=== PATIENT | male | born 1950 | race African-American/Black ===

== ENCOUNTER 2017-03-18 20:37 | Inpatient (IN) ==
[2017-03-18] MEDS ORDERED: TYLENOL ONE (21:00)
[2017-03-18] MEDS ORDERED: TYLENOL PO ONE (21:03)
[2017-03-18] MEDS ORDERED: ZOSYN 3.375 GM in NS 50 ML IV ONE (21:34)
[2017-03-18 21:58] LABS: MANUAL DIFF NEEDED? NO
[2017-03-18 22:04] LABS: HEMOGLOBIN 13.6 g/dL (14.0-18.0); IMM GRAN# 0.02 X1000 (0.0-0.04); IMM GRAN% 0.3 % (0.0-0.5); LYMPH# 0.82 X1000 (1.2-3.4); LYMPH% 10.5 % (20.5-51.1); MCH 28.2 PG (27-31); MCHC 33.2 g/dL (33-37); MCV 84.9 FL (81-99); MONO# 1.22 X1000 (0.11-0.59); MONO% 15.6 % (1.7-9.3); MPV 10.1 FL (7.4-10.4); NEUT% 73.6 % (42.2-75.2); PLT 253 X1000 (130-400); RBC 4.83 XMIL (4.7-6.1)
[2017-03-18 22:34] LABS: AGAP 13; ALBUMIN 4.7 g/dL (3.5-5.0); ALKALINE PHOSPHATASE 99 U/L (32-122); BUN 8 mg/dL (8-22); CALCIUM 9.8 mg/dL (8.8-10.2); CHLORIDE 87 mmol/L (98-107); COSMO 262; GOT 28 U/L (10-34); GPT 19 U/L (10-44); POTASSIUM 4.1 mmol/L (3.5-5.1); SODIUM 131 mmol/L (136-145); TCO2 31 mmol/L (25-35); TOTAL BILIRUBIN 0.21 mg/dL (0.20-1.00); TOTAL PROTEIN 9.2 g/dL (6.3-8.3)
--- NOTE | 2017-03-18 22:49 | Diag Imaging Result Doc PS360 ---
EXAM: CHEST-PORTABLE HISTORY: temp 103 Seizure TECHNIQUE: Portable upright AP COMPARISON: 12/28/2016 FINDINGS: There is basilar atelectasis, otherwise the lungs are well expanded. Heart is not enlarged. The pulmonary vessels are not distended. There are tiny infiltrates in the mid right lung and left base. No pleural effusions identified. IMPRESSION: Tiny infiltrates in the mid right lung and left base. Electronically signed by Bert Knight 03/18/2017 10:47 PM
[2017-03-19 01:34] LABS: URINE CULTURE NEEDED? NO; URINE SOURCE CLEAN CATCH
[2017-03-19 01:36] LABS: BILIRUBIN URINE NEGATIVE (NEGATIVE); BLOOD URINE SMALL (NEGATIVE); COLOR YELLOW; GLUCOSE URINE 70 mg/dL (NEGATIVE); LEUKOCYTES URINE NEGATIVE (NEGATIVE); NITRITE URINE NEGATIVE (NEGATIVE); PH URINE 5.5; PROTEIN URINE 100 mg/dL (NEGATIVE); SP GRAVITY URINE 1.021; TURBIDITY URINE CLEAR (CLEAR); UROBILINOGEN URINE NORMAL (NORMAL)
[2017-03-19 01:37] LABS: URINE MICRO REVIEW NEEDED? YES
[2017-03-19 01:45] LABS: UR EPITHELIAL CELLS <10 /HPF (<10); URINE BACTERIA NEGATIVE /HPF; URINE RBC <10 /HPF (<10); URINE WBC <10 /HPF (<10)
[2017-03-19] MEDS: DILANTIN IV SCH ×2 (03:07→20:19)
[2017-03-19] MEDS: ZOSYN 4.5 GM in NS 100 ML IV SCH ×4 (05:36→23:54)
--- NOTE | 2017-03-19 06:45 | EKG Report ---
Test Performed on : 03/18/2017 8:32:34 PM Test Reason : NO ORDER Blood Pressure : / mmHG Vent. Rate : 136 BPM Atrial Rate : 136 BPM P-R Int : 158 ms QRS Dur : 074 ms QT Int : 258 ms P-R-T Axes : 079 072 024 degrees QTc Int : 388 ms Sinus tachycardia. Right atrial enlargement Left ventricular hypertrophy with repolarization abnormality Abnormal ECG When compared with ECG of 08-FEB-2017 10:39, Inverted T waves have replaced nonspecific T wave abnormality in Lateral leads Unconfirmed Result
--- NOTE | 2017-03-19 08:13 | HISTORY AND PHYSICAL ---
PRIMARY PHYSICIAN: None. CHIEF COMPLAINT: Seizure. HISTORY OF PRESENT ILLNESS: The patient is a 66-year-old gentleman who has been brought from the [facility] for seizure. His past medical history is significant for seizures, multiple visits and admissions. There is history of alcohol abuse as well. He has been in the penitentiary for 1 month, though apparently today he was found by the penitentiary staff on the floor having seizures, so he was brought here. He did have on episode of vomiting there. The history is not very clear and there is no one to give a clear history as book shelver with him do not know the details. He himself is not able to give much information at all. It seems that he was having nausea and vomiting going on since morning and there was questionable witnessed seizure as well after which he was brought here. Here he did not have any seizure and did not have any nausea or vomiting noticed. He was pretty confused in the beginning. After start of antibiotics here, he has improved. He still is not able to give appropriate answers to many questions, but overall looks awake and alert. He says "no" to all questions and does not complain of any pain or any symptoms going on at this point. REVIEW OF SYSTEMS: All review of systems done in detail and he is saying "no" to all the questions except as mentioned in the history and physical. PAST MEDICAL HISTORY: 1. History of seizures with multiple admissions. 2. History of alcohol abuse. PAST SURGICAL HISTORY: No particular surgical history found from his records. He is not able to give any information in that regard. SOCIAL HISTORY: There is history of alcohol drinking but no history of tobacco or drugs. He has come from penitentiary at this point. FAMILY HISTORY: Family history is not obtainable. ALLERGIES: No known drug allergies. HOME MEDICATIONS: He was supposed to be on Dilantin 400 mg at night, not sure whether he was taking that or not. PHYSICAL EXAMINATION: VITAL SIGNS: His vital signs were noticed to be stable but he did have some temperature of 100.1 and heart rate was elevated when he came in at around 110. Blood pressure stable. GENERAL: Lying comfortably in the bed. Looks age appropriate. Looks a little confused but overall pleasant. Not oriented to time, place and person. HEENT: Moist oral mucosa. Pupils equal, round, reactive to light and accommodation. Left eye looks like having cataracts. No ENT inspection findings. RESPIRATORY: Clear to auscultation bilaterally. No wheezes, rales or rhonchi noted. CARDIOVASCULAR: S1, S2. Regular rate and rhythm. GASTROINTESTINAL: Soft, nontender, nondistended. No particular positive findings noted on GI examination. NEUROLOGIC: He is not oriented to time, place and person. He does not seem to be postictal. Looks like at his baseline at this point. He does follow commands. No focal deficits noted on detailed examination. SKIN: Warm, dry and intact. No edema noted. LABORATORY DATA: Lab results are within normal limits. CBC is within normal limits. CMP shows sodium 131, potassium 4.1, chloride 87, BUN 8, creatinine 0.6, glucose 123. Creatine kinase is elevated to 206. LFTs otherwise within normal limits. Total protein 9.2. UA was done which shows some urine protein and urine glucose but negative for urinary tract infection. RADIOLOGY: X-ray was done which does show right-sided infiltrates, mid right lung and left base infiltrates noted. ASSESSMENT AND PLAN: The patient is a pleasant 66-year-old gentleman who has come with nausea, vomiting and possible seizure as well. He does have history of seizures too. We are managing him as follows: 1. Seizure. Not fully sure whether he did have seizure today or not but it seemed like he was confused with some postictal situation going on when he came in her. Apparently he did have some seizure like activity. He was supposed to be on Dilantin 400 at night, not sure whether he was taking it or not. Getting Dilantin level. Starting him on Dilantin 200 mg IV b.i.d. for now while here. Will give Ativan p.r.n. if he does get seizures here. There was concern of alcohol withdrawal and related seizures but, per the history, he has been in the penitentiary for about a month so it should not be related to alcohol withdrawal. We will get an alcohol level as well. 2. Pneumonia: Possible aspiration pneumonia. Started on Abx. 3. History of alcohol abuse. As mentioned above. Most likely it has been about a month while he was in penitentiary so alcohol withdrawal and abuse does not seem to be related to his seizure activity at this point. 4. Deep venous thrombosis prophylaxis. We will give him Lovenox daily. 5. I have put in orders and reconciled medications. All orders will be reviewed and finalized by the morning attending physician and further plan accordingly. cc: Kathy Norman MD MTDD
[2017-03-19] MEDS ORDERED: LOVENOX SUBQ SCH (09:00)
--- NOTE | 2017-03-19 10:26 | HISTORY AND PHYSICAL ---
ADDENDUM REPORT PLAN: 2. Pneumonia. It looks like it could be aspiration pneumonia while maybe he was having a seizure and then got pneumonia. Either way, it could be that he had pneumonia to begin with and then got seizures. In any case, he has been started on Zosyn in the ED, and I would continue that for now while here. The chest x-ray findings were consistent with pneumonia. Further plan according to the overall response to that treatment. cc: Kathy Norman MD
--- NOTE | 2017-03-19 12:59 | Diag Imaging Result Doc PS360 ---
MRI BRAIN W/O CONTRAST - 03/19/2017 INDICATION: seizure COMPARISON: Head CT 02/08/2017 FINDINGS: There is extensive magnetic artifact from a metallic foreign body at the left parietal scalp. There is also extensive patient motion artifact. No definite restricted diffusion. No definite intracranial mass or hemorrhage. There is moderate to advanced periventricular white matter hyperintensity compatible with chronic vascular disease stable from prior exams. The ventricles and sulci are grossly normal. There is sinusitis of the maxillary and frontal sinuses. IMPRESSION: 1. Moderately advanced cerebral white matter chronic microvascular disease. 2. Sinusitis. 3. No acute intracranial process. Electronically signed by Nguyễn Calloway 03/19/2017 12:56 PM
[2017-03-19] MEDS ORDERED: VANCOMYCIN IV PER PHARMACY MISC SCH (13:45)
[2017-03-19] MEDS ORDERED: TYLENOL PO PRN (15:02)
[2017-03-19] MEDS ORDERED: ZOFRAN IV PRN (15:02)
--- NOTE | 2017-03-19 15:23 | PROGRESS NOTE ---
DATE: 03/19/2017 SUBJECTIVE: The patient is awake but does have some confusion. He has no complaints at this time. OBJECTIVE: Vital Signs: Temperature 99.5 degrees, blood pressure 102/81, heart rate 107, respirations 20, O2 saturations 93% on room air. General: This is an elderly male, lying in bed, in no acute distress. Heart: S1, S2 normal. Tachycardic. Lungs: Coarse breath sounds bilaterally. No crackles. No rales. Abdomen: Positive bowel sounds. Soft, nontender, nondistended. Extremities: No edema. No cyanosis. No calf tenderness. Neurologic: The patient is awake and alert. No focal neurologic deficits noted. LABS: UA negative. Blood cultures: One bottle is growing gram-positive cocci. ASSESSMENT AND PLAN: 1. Seizure. The patient does have a history of seizures when he is off of his alcohol. The patient has been seen by Dr. Pierre and we will monitor the patient off of seizure medication. 2. Bacteremia. One bottle of the blood cultures is growing gram-positive cocci. We will start the patient on vancomycin and await the final results of the blood cultures. 3. Pneumonia. Continue on IV Zosyn and vancomycin. 4. Acute sinusitis. Continue with IV antibiotic therapy. 5. Alcohol abuse. The patient has been counseled about alcohol cessation. 6. Deep vein thrombosis prophylaxis. Will start the patient on Lovenox. cc: Sparkle Flowers MD
[2017-03-19] MEDS: DUONEB (A & A) INH SCH ×2 (15:26→21:36)
--- NOTE | 2017-03-19 15:52 | CONSULTATION ---
DATE OF CONSULTATION: 03/19/2017 NEUROLOGY CONSULT NOTE: Mr. Jimenez is 66 years old, well known to me. He had apparent seizure in long-term and was brought to the hospital. There is significant uncertainty regarding previous and recent management. He was in the hospital here in December 2015 and I saw him then. We made decision then to discharge him without medicine to control seizures. There is report in the admission note this time that he may have had a recent prescription for phenytoin 400 mg daily. Mr. Jimenez is not able to provide any valid history regarding medicines. He has a longstanding history of infrequent seizures, generalized seizures on each occasion, never any definite focal feature, never any protracted encephalopathy. I have reviewed the records available regarding several of these previous episodes and, to the best of my ability to review, none of these was unrelated to ethanol. Each episode seems to be clearly a case of ethanol withdrawal seizure. At this time, he was reportedly in long-term. Initially, I thought he had been in long-term for a few weeks which would make ethanol withdrawal seizure less likely, unless he had consumed ethanol after incarceration. However, he told me he was only put in long-term a day and a half or 2 days before the apparent seizure. Workup here includes labs showing nothing remarkable. On exam, he is awake, alert, attentive, cheerful, appropriate. Speech is minimally dysarthric, but easily understood. Language function is intact. Memory is poor. He was not able to provide correct answers regarding orientation. He could not name the President. He could not discuss recent news. He has equal power in the limbs. I did not test his gait. He did well on finger-to- nose testing bilaterally. Tone is equal in the arms. He has full visual field tested very grossly by confrontational finger counting. Facial motility seems a little bit diminished bilaterally, but symmetric. There is no meningismus. IMPRESSION: 1. Longstanding history of apparent isolated seizure episodes, most if not all associated with ethanol withdrawal. In that setting, the best management would be to recommend ethanol abstinence. We might consider prescribing medicine for seizure control, but it seems clear to me that he would likely not follow directions. This is a dilemma and I do not have a definite suggestion. 2. I believe that he is demented. 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 We might consider adding cholinesterase inhibitor as a trial when practical, not urgent. Thanks for asking me to see Mr. Jimenez. cc: MD CHASITY Ayala III
[2017-03-19] MEDS ORDERED: VANCOMYCIN 1.7 GM in NS 250 ML IV ONE (16:00)
[2017-03-19] MEDS: LOVENOX SUBQ SCH (16:17)
[2017-03-20] MEDS: DUONEB (A & A) INH SCH ×4 (03:09→23:45)
[2017-03-20] MEDS: ZOSYN 4.5 GM in NS 100 ML IV SCH ×4 (04:56→23:42)
[2017-03-20] MEDS: VANCOMYCIN 1.2 GM in NS 250 ML IV SCH ×2 (06:23→16:30)
[2017-03-20] MEDS: PRILOSEC PO SCH (06:23)
[2017-03-20 06:59] LABS: AGAP 17; BUN 6 mg/dL (8-22); CHLORIDE 92 mmol/L (98-107); COSMO 272; POTASSIUM 3.9 mmol/L (3.5-5.1); SODIUM 137 mmol/L (136-145); TCO2 28 mmol/L (25-35)
[2017-03-20 07:29] LABS: BASO% 0.3 % (0.0-0.8); EOS# 0.01 X1000 (0.0-0.7); EOS% 0.1 % (0.0-10.0); HEMATOCRIT 37.3 % (42.0-52.0); HEMOGLOBIN 12.3 g/dL (14.0-18.0); IMM GRAN# 0.02 X1000 (0.0-0.04); IMM GRAN% 0.2 % (0.0-0.5); LYMPH# 1.42 X1000 (1.2-3.4); LYMPH% 16.3 % (20.5-51.1); MANUAL DIFF NEEDED? YES; MCH 27.8 PG (27-31); MCV 84.4 FL (81-99); MONO# 1.11 X1000 (0.11-0.59); MONO% 12.8 % (1.7-9.3); MPV 9.7 FL (7.4-10.4); NEUT% 70.3 % (42.2-75.2); PLT 248 X1000 (130-400); RBC 4.42 XMIL (4.7-6.1)
[2017-03-20 07:37] LABS: BANDS 1 % (0-1); BASO 1 % (0-1); LYMPHS 17 % (21-51); MONO 10 % (1-9)
[2017-03-20 07:43] LABS: SED RATE 70 mm/hr (0-15)
--- NOTE | 2017-03-20 08:38 | Diag Imaging Result Doc PS360 ---
EXAM: CT THORAX W/O CONTRAST HISTORY: pneumonia TECHNIQUE: CT chest without contrast. Dose reduction protocol. COMPARISON: None. FINDINGS: No pleural effusions. No cardiomegaly. The ascending aorta is mildly dilated to 4.2 cm. Mild to moderate atherosclerosis. Mildly prominent mediastinal nodes. There are [id number] emphysematous changes. Small patchy infiltrates are found bilaterally. There is a small amount of bronchiectasis within the right middle lobe. Small dense consolidated area posteriorly in the left lower lobe. There is a 4 mm pleural-based nodule within the right middle lobe. Questionable 7 mm nodule or volume averaging inferiorly in the left lower lobe on image 93. IMPRESSION: 1.Small bilateral infiltrates 2.Emphysema 3.Small right middle lobe nodule with a questionable nodule in the left lower lobe 4.Right middle lobe bronchiectasis 5.Mild dilatation of the descending aortic arch Electronically signed by Bert Knight 03/20/2017 8:36 AM
[2017-03-20] MEDS: DILANTIN IV SCH (09:24)
--- NOTE | 2017-03-20 16:06 | PROGRESS NOTE ---
DATE: 03/20/2017 SUBJECTIVE: The patient is resting comfortably in bed. He has no complaints. OBJECTIVE: Vital Signs: Temperature 98.1 degrees, blood pressure 117/63, heart rate 97, respirations 20, O2 saturations 98% on room air. General: This is an elderly male, lying in bed, in no acute distress. Heart: S1, S2 normal. Tachycardic. Lungs: Equal air entry bilaterally. No crackles, no rales. Abdomen: Positive bowel sounds. Soft, nontender, nondistended. Extremities: No edema. No cyanosis. No calf tenderness. Neurologic: The patient is alert and oriented x3. LABORATORIES: White blood cell count 8.7, hemoglobin 12, hematocrit 37, platelets 248,000. Sodium 137, potassium 3.9, BUN 6, creatinine 0.7, glucose 104. ASSESSMENT/PLAN: 1. Bilateral lobe pneumonia. Continue with the current antibiotic regimen. 2. Seizure. The patient has had no further seizure activity. Will continue to monitor the patient off of seizure medication. 3. Right middle lobe nodule and left lobe nodule. The patient will likely require a repeat CT scan upon discharge, after completion of the antibiotic therapy. 4. Alcohol abuse. The patient has been counseled about alcohol cessation. 5. Acute sinusitis. Continue with antibiotic therapy. 6. Bacteremia. So far, 1 bottle of the blood cultures are growing gram-positive cocci. Will await the final culture results. 7. Deep vein thrombosis prophylaxis. Continue on Lovenox. cc: Sparkle Flowers MD
[2017-03-20] MEDS: LOVENOX SUBQ SCH (17:42)
[2017-03-21] MEDS: DUONEB (A & A) INH SCH ×4 (03:49→22:21)
[2017-03-21] MEDS: VANCOMYCIN 1.2 GM in NS 250 ML IV SCH ×2 (04:34→05:27)
[2017-03-21] MEDS: PRILOSEC PO SCH (06:33)
[2017-03-21 06:54] LABS: BASO% 0.2 % (0.0-0.8); EOS# 0.04 X1000 (0.0-0.7); EOS% 0.6 % (0.0-10.0); HEMATOCRIT 37.6 % (42.0-52.0); HEMOGLOBIN 12.5 g/dL (14.0-18.0); IMM GRAN# 0.03 X1000 (0.0-0.04); IMM GRAN% 0.5 % (0.0-0.5); LYMPH% 19.1 % (20.5-51.1); MANUAL DIFF NEEDED? YES; MCHC 33.2 g/dL (33-37); MCV 84.3 FL (81-99); MONO# 1.23 X1000 (0.11-0.59); MONO% 19.6 % (1.7-9.3); PLT 272 X1000 (130-400); RBC 4.46 XMIL (4.7-6.1)
[2017-03-21 07:24] LABS: AGAP 14; BUN 7 mg/dL (8-22); CALCIUM 9.5 mg/dL (8.8-10.2); CHLORIDE 94 mmol/L (98-107); COSMO 270; SODIUM 136 mmol/L (136-145); TCO2 28 mmol/L (25-35)
[2017-03-21 07:29] LABS: LYMPHS 34 % (21-51); MONO 7 % (1-9)
--- NOTE | 2017-03-21 08:21 | Diag Imaging Result Doc PS360 ---
EXAM: CHEST-2 VIEWS HISTORY: pneumonia TECHNIQUE: Two views COMPARISON: 03/18/2017 FINDINGS: The lungs are hyperexpanded. The heart is not enlarged. Minimal atelectasis or small infiltrates in the lower lungs. These are less pronounced on the prior exam. IMPRESSION: Mild interval improvement. Electronically signed by Bert Knight 03/21/2017 8:19 AM
[2017-03-21] MEDS: ZOSYN 4.5 GM in NS 100 ML IV SCH ×2 (09:48→11:22)
--- NOTE | 2017-03-21 14:36 | PROGRESS NOTE ---
DATE: 03/21/2017 SUBJECTIVE: The patient is resting comfortably in bed. He has no complaints at this time. No acute events noted overnight. OBJECTIVE: Vital Signs: Temperature 97.9 degrees, blood pressure 119/77, heart rate 95, respirations 18, O2 saturations 96% on room air. General: This is a chronically ill-appearing, elderly male, lying in bed in no acute distress. Heart: S1, S2 normal. Tachycardic. Lungs: Equal air entry bilaterally. No crackles. No rales. Abdomen: Positive bowel sounds. Soft, nontender, nondistended. Extremities: No edema. No cyanosis. No calf tenderness. Neuro: The patient is awake and alert. No focal neurologic deficits noted. LABORATORY DATA: White blood cell count 6.2, hemoglobin 12, hematocrit 37, platelets 272,000. Sodium 136, potassium 4, chloride 94, CO2 of 28. BUN 7, creatinine 0.8, glucose 101. ASSESSMENT AND PLAN: 1. Pneumonia. Continue with antibiotic therapy. 2. Bacteremia. The patient had 1 bottle of the blood cultures grow out Moraxella. We will consult Infectious Disease and await further recommendations. 3. Seizure. The patient is off of seizure medication at this time and has been assessed by Dr. Pierre. We will continue to monitor the patient off of antiepileptic medication. 4. Alcohol abuse. The patient has been counseled about alcohol cessation. 5. Acute sinusitis. Continue with antibiotic therapy. 6. Right and left lobe nodules. We will set the patient to follow up with a clinical biostatistician as outpatient for repeat CT once his pneumonia has resolved. The patient has been advised to quit smoking. 7. Deep vein thrombosis prophylaxis. Continue on Lovenox. cc: Sparkle Flowers MD
[2017-03-21] MEDS: ROCEPHIN 2 GM in NS 50 ML IV SCH (16:34)
[2017-03-21] MEDS: LOVENOX SUBQ SCH (16:34)
[2017-03-21] MEDS: FLONASE NAS SCH (20:30)
[2017-03-21] MEDS: NICODERM PATCH TD SCH (20:32)
--- NOTE | 2017-03-21 21:12 | CONSULTATION ---
DATE OF CONSULTATION: 03/21/2017 Based on the data collected by my nurse practitioner, Mee Emerson, and my physical examination, I have come up with a plan of treatment which is being dictated right now by my nurse practitioner. cc: Carlin Gordillo MD
--- NOTE | 2017-03-21 21:18 | CONSULTATION ---
DATE OF CONSULTATION: 03/21/2017 CONCLUSION: Mr. Jimenez had a seizure in the half-way and has been admitted for bilateral infiltrates, possible aspiration pneumonia and sinusitis as seen in the MRI. RECOMMENDATION: Dr. Gordillo has discontinued vancomycin and Zosyn due to this blood culture results of Moraxella noted to blood culture. Susceptibilities are pending. At this point, we will start Rocephin 2 g IV. He does have a sinusitis noted on his brain MRI as well as bilateral small infiltrates on his chest CT. We will also order Flonase 2 squirts to each nostril twice a day. DISCUSSION: Mr. Jimenez is somewhat lethargic and a poor historian. He has been admitted to the hospital after being in half-way with a seizure and falls asleep at times during his review of history. LABORATORIES AND X-RAY: His white count is 6.27, hemoglobin 12.5, platelet count is 272,000. Creatinine is 0.6, GFR is greater than 60, CRP is 312. CT scan with small bilateral infiltrates yesterday and sinus as mentioned below on the brain MRI. Blood culture show Moraxella growing. PAST MEDICAL HISTORY/REVIEW OF SYSTEMS: Eyes and ears: The patient denies any vision or hearing problems. Neck: Denies any stiffness or swelling. Respiratory: He denies any cough or shortness of breath. Cardiovascular: He states he has no chest pain or palpitations. GI: He denies any nausea, vomiting, diarrhea, or constipation. : He denies any dysuria or flank pain. Endocrine: The patient states he does not have diabetes or any thyroid problems. Neurologic: He says he has had seizures in the past, but does not take any seizure medication. Denies any tremors or weakness. INFECTIOUS DISEASE HISTORY: Mr. Jimenez says he has had pneumonia in the past which he states was a while back, but he has never had a UTI. PREVIOUS HOSPITALIZATIONS AND OPERATIONS: He has been hospitalized numerous times for altered mental status, ETOH withdrawal and seizures. He denies any history of surgery and no obvious incisions noted. MEDICAL HISTORY: He has had a history of seizures with multiple admissions and alcohol abuse. He is also a cigarette smoker of a pack a day. He has had history of hypertension. He has dislocated his right femoral head with a closed reduction in 2013 and has had multiple hand fractures and dislocations to the left hand in the past. PAST FAMILY HISTORY: The patient denies any family history of cancer, diabetes or heart disease. ALLERGIES: Patient denies any allergies to food or medicine. HOME MEDICATIONS: The patient states he does not take medications at home. He has been previously prescribed Dilantin to take at bedtime for seizure prevention. PHYSICAL EXAMINATION: Vital Signs: Temperature 97.9 degrees, heart rate 95, respiratory rate 18, blood pressure 119/77. He is 96% O2 saturation on room air. Generally: Mr. Jimenez is sitting up in bed, drowsy, looks age appropriate, he is slightly confused, and thinks he is in half-way. Reoriented, but he does know who he is. He seems very forgetful and is a poor historian. HEENT: Oral mucosa is moist. The mouth shows poor dentition with very few teeth. Pupils: Equal, round, and reactive to light. He is atraumatic and normocephalic. Respiratory: His respirations are even and nonlabored. His lungs sounds are auscultated, are clear bilaterally. He is diminished with shallow breath breathing. No wheezes or rhonchi noted. Cardiovascular: S1, S2 heard. He is in a regular rate and rhythm. Extremities: No edema to lower extremities. GI: Is soft, nontender, nondistended. Bowel sounds are noted to all 4 quadrants. Skin: Warm, dry, and intact. He has IV to his right forearm. The site looks clean, dry and intact. The previous plans have been discussed with and recommended by Dr. Carlin Gordillo. Dictated by JUDITH Morfin for Carlin Gordillo MD cc: JUDITH Morfin MD [facility]
[2017-03-22] MEDS: DUONEB (A & A) INH SCH ×4 (03:12→21:39)
[2017-03-22] MEDS: PRILOSEC PO SCH (06:32)
[2017-03-22 06:47] LABS: HEMATOCRIT 37.8 % (42.0-52.0); HEMOGLOBIN 12.6 g/dL (14.0-18.0); MCH 28.5 PG (27-31); MCHC 33.3 g/dL (33-37); MCV 85.5 FL (81-99); MPV 9.7 FL (7.4-10.4); RBC 4.42 XMIL (4.7-6.1)
[2017-03-22 07:16] LABS: AGAP 18; BUN 6 mg/dL (8-22); CHLORIDE 90 mmol/L (98-107); COSMO 264; POTASSIUM 4.4 mmol/L (3.5-5.1); SODIUM 133 mmol/L (136-145); TCO2 25 mmol/L (25-35)
[2017-03-22] MEDS: FLONASE NAS SCH ×2 (09:41→23:08)
[2017-03-22] MEDS: ZOSYN 4.5 GM in NS 100 ML IV SCH (10:30)
[2017-03-22] MEDS: ROCEPHIN 2 GM in NS 50 ML IV SCH (17:06)
--- NOTE | 2017-03-22 17:14 | PROGRESS NOTE ---
DATE: 03/22/2017 SUBJECTIVE: The patient is resting comfortably in bed. He has no complaints. OBJECTIVE: Vital Signs: Temperature 98.3 degrees, blood pressure 127/75, heart rate 91, respirations 26, O2 saturations 93% on room air. General: This is an elderly male, lying in bed, in no acute distress. Heart: S1, S2 normal. Tachycardic. Lungs: Equal air entry bilaterally. No crackles. No rales. Abdomen: Positive bowel sounds. Soft, nontender, nondistended. Extremities: No edema. No cyanosis. No calf tenderness. Neurologic: The patient is alert and oriented x3. LABS: White blood cell count 5.1, hemoglobin 12, hematocrit 37, platelets 306,000. Sodium 133, BUN 6, creatinine 0.5, glucose 97. ASSESSMENT AND PLAN: 1. Pneumonia. Continue on IV Rocephin as directed by Dr. Carlin Gordillo. 2. Bacteremia secondary to Moraxella. Continue on Rocephin. 3. Alcohol abuse. Aware. 4. Acute sinusitis. Continue with IV antibiotic therapy. 5. Right and left lobe nodules. The patient will follow up for an outpatient CT upon completion of his antibiotic therapy. 6. Seizure. The patient has had not has not had any further seizure activity. We will continue to monitor closely. 7. Deep vein thrombosis prophylaxis. Continue on Lovenox. cc: Sparkle Flowers MD
--- NOTE | 2017-03-22 20:22 | PROGRESS NOTE ---
DATE: 03/22/2017 PRESENT ILLNESS: The patient has a Moraxella bacteremia, pneumonia, and sinusitis. MEDICATIONS: The patient is on Rocephin 2 g IV daily. PHYSICAL EXAMINATION: Vital Signs: Temperature is 98.3 degrees, pulse 98, respirations 16, blood pressure 127/75. General: This is an ill-appearing and somewhat malnourished middle-aged male. He is in no acute distress. Lungs: Clear to auscultation. HEENT: No drainage noted from the nose or ears. Sinuses are not tender. Cardiovascular: Heart rate is regular. Abdomen: Soft and nontender. Lungs: Clear to auscultation. LAB AND X-RAY: There is no new radiographic study. CBC today shows a white count of 5130, hemoglobin 12.6, and platelet count 306,000. Creatinine is 0.5. GFR is greater than 60. The patient's blood culture grew Moraxella and Streptococcus. ASSESSMENT AND PLAN: The patient has Moraxella bacteremia, pneumonia, and sinusitis. My plan is to continue Rocephin. I have requested on the 25 of March to have a CBC, BMP, chest x-ray and CT scan of the sinuses. Hopefully, if everything looks better hopefully we will be able to send the patient home on an oral antibiotic possibly Levaquin. Since the patient does have a history of seizures, I probably will not use Levaquin. Most likely I would use something like Ceftin or another possibility would be Augmentin. COMORBIDITIES: Alcohol abuse, cigarette smoking. cc: Carlin Gordillo MD
[2017-03-22] MEDS: NICODERM PATCH TD SCH (23:08)
[2017-03-22] MEDS: LOVENOX SUBQ SCH (23:08)
[2017-03-23] MEDS: DUONEB (A & A) INH SCH ×4 (03:18→22:03)
[2017-03-23] MEDS: PRILOSEC PO SCH (06:31)
[2017-03-23] MEDS: NICODERM PATCH TD SCH (11:12)
[2017-03-23] MEDS: FLONASE NAS SCH ×2 (11:13→21:42)
[2017-03-23] MEDS: ROCEPHIN 2 GM in NS 50 ML IV SCH (16:52)
[2017-03-23] MEDS: LOVENOX SUBQ SCH (21:42)
[2017-03-24] MEDS: DUONEB (A & A) INH SCH ×4 (03:12→21:50)
[2017-03-24] MEDS: PRILOSEC PO SCH (06:04)
[2017-03-24] MEDS: FLONASE NAS SCH ×2 (09:33→21:10)
[2017-03-24] MEDS: NICODERM PATCH TD SCH (09:33)
--- NOTE | 2017-03-24 15:23 | PROGRESS NOTE ---
DATE: 03/24/2017 SUBJECTIVE: The patient is resting comfortably in bed. He states that he wants to go home. OBJECTIVE: Vital Signs: Temperature 98, blood pressure 127/77, heart rate 100, respirations 21, O2 saturation 96% on room air. General: This is a chronically ill-appearing elderly male, lying in bed. Head: Normocephalic, atraumatic. Heart: S1, S2. Normal. Tachycardic. Lungs: Equal air entry bilaterally. No crackles, no rales. Abdomen: Positive bowel sounds. Soft, nontender, nondistended. Extremities: No edema. No cyanosis. No calf tenderness. Neurologic: The patient is awake and alert. LABORATORY STUDIES: White blood cell count 5.1, hemoglobin 12, hematocrit 37, platelets 306,000. Sodium 133, potassium 4.4, chloride 90, CO2 25, BUN 6, creatinine 0.5, glucose 97. ASSESSMENT AND PLAN: 1. Pneumonia. Continue on IV Rocephin. 2. Bacteremia secondary to Moraxella. Continue on Rocephin. 3. Acute sinusitis. Continue with antibiotic therapy. 4. Alcohol abuse. Aware. 5. Seizure. No further seizure activity noted. 6. Lung nodules. The patient will follow up with a retort pre cooker upon discharge for a repeat CT. 7. Deep vein thrombosis prophylaxis. Continue on Lovenox. cc: Sparkle Flowers MD
[2017-03-24] MEDS: ROCEPHIN 2 GM in NS 50 ML IV SCH (15:35)
[2017-03-24] MEDS ORDERED: CEREBYX IV ONE (17:09)
[2017-03-24] MEDS ORDERED: ATIVAN IV PRN (17:10)
[2017-03-24 17:11] LABS: ALLEN TEST YES; BE -21.3 mmoll (-3.0-3.0); BLOOD TYPE ARTERIAL; DRAW SITE R RADIAL; METHB 1.2 % (0.0-1.5); O2(CT) 18.4 mL/dL (15.0-23.0); PCO2(98.6) 40 mmHg (35-45); PO2(98.6) 101 mmHg (60-100); SAMPLE BLOOD; SAO2 96.7 % (95.0-100.0); THB 13.8 g/dL (11.5-17.4)
[2017-03-24 17:13] LABS: MODALITY ROOM AIR; pH(98.6) 6.99 (7.35-7.45)
[2017-03-24 17:14] LABS: LACTATE > 20.00 mmoll (0.44-2.22)
[2017-03-24 17:30] LABS: MANUAL DIFF NEEDED? NO
[2017-03-24 17:36] LABS: BASO% 0.4 % (0.0-0.8); EOS# 0.15 X1000 (0.0-0.7); EOS% 1.5 % (0.0-10.0); HEMATOCRIT 42.2 % (42.0-52.0); HEMOGLOBIN 13.4 g/dL (14.0-18.0); IMM GRAN# 0.15 X1000 (0.0-0.04); IMM GRAN% 1.5 % (0.0-0.5); LYMPH# 3.45 X1000 (1.2-3.4); MCH 27.9 PG (27-31); MCHC 31.8 g/dL (33-37); MCV 87.9 FL (81-99); MONO# 1.73 X1000 (0.11-0.59); MONO% 17.5 % (1.7-9.3); MPV 9.4 FL (7.4-10.4); NEUT% 44.1 % (42.2-75.2); PLT 433 X1000 (130-400)
[2017-03-24 17:54] LABS: AGAP 31; ALBUMIN 4.3 g/dL (3.5-5.0); ALKALINE PHOSPHATASE 81 U/L (32-122); BUN 15 mg/dL (8-22); CALCIUM 10.2 mg/dL (8.8-10.2); CHLORIDE 91 mmol/L (98-107); COSMO 277; GOT 19 U/L (10-34); GPT 21 U/L (10-44); POTASSIUM 4.6 mmol/L (3.5-5.1); SODIUM 136 mmol/L (136-145); TCO2 14 mmol/L (25-35); TOTAL PROTEIN 8.1 g/dL (6.3-8.3)
--- NOTE | 2017-03-24 17:59 | Diag Imaging Result Doc PS360 ---
CHEST-PORTABLE - 03/24/2017 INDICATION: aspiration TECHNIQUE: COMPARISON: 03/21/2017 FINDINGS: There are stable trace effusions and atelectasis in the lung bases. Stable COPD changes. No definite infiltrates at this time. Heart size is top normal. IMPRESSION: Improvement from prior. Electronically signed by Nguyễn Calloway 03/24/2017 5:57 PM
[2017-03-24] MEDS ORDERED: CEREBYX 1,000 MG in NS 50 ML IV ONE (18:00)
[2017-03-24] MEDS: KEPPRA 500 MG in NS 100 ML IV SCH (18:44)
[2017-03-24] MEDS ORDERED: ATIVAN IV ONE (19:29)
[2017-03-24] MEDS ORDERED: LACTULOSE PO ONE (19:34)
[2017-03-24 19:38] LABS: INR 1.09; PROTIME 11.5 Seconds (9.2-11.7)
[2017-03-24 21:09] LABS: ALLEN TEST YES; BE 4.9 mmoll (-3.0-3.0); BLOOD TYPE ARTERIAL; DRAW SITE R RADIAL; METHB 1.6 % (0.0-1.5); MODALITY ROOM AIR; PCO2(98.6) 41 mmHg (35-45); PO2(98.6) 63 mmHg (60-100); SAMPLE BLOOD; SAO2 94.7 % (95.0-100.0); THB 13.2 g/dL (11.5-17.4); pH(98.6) 7.46 (7.35-7.45)
[2017-03-24] MEDS: LOVENOX SUBQ SCH (21:14)
[2017-03-24 22:19] LABS: URINE CULTURE NEEDED? NO; URINE SOURCE CATH
--- NOTE | 2017-03-24 22:20 | CONSULTATION ---
DATE OF CONSULTATION: 03/24/2017 PRIMARY HOSPITALIST: Sparkle Flowers MD. INDICATION FOR CONSULTATION: 1. The patient found down. 2. Known history of seizure disorder. HISTORY OF PRESENT ILLNESS: The patient is a 66-year-old male, who was admitted on 03/19/2017 from the detention for evaluation of seizures. Today, as I was walking down the [place], he was found face down, half in the bed and half slumped on the floor, unresponsive. We were able to place the patient on the bed, and perform a jaw thrust. He had spontaneous breathing and respirations. However, his mental status was altered. He was incontinent of urine, suggesting that he had a seizure. His airway was suctioned, and we were able to find a spontaneous blood pressure of 155/69. His pulse at that time was 127, with spontaneous respirations of 24-26. His oxygen saturation was 98% on room air. In light of these findings and his unresponsive state, critical assist call was made, and the patient was transported to the ICU. PAST MEDICAL HISTORY: 1. Seizures. 2. Alcohol abuse. PAST SURGICAL HISTORY: None according to the chart. SOCIAL HISTORY: Remarkable for a history of ETOH, but no tobacco or recreational drug use. FAMILY HISTORY: Noncontributory. MEDICATION ALLERGIES: None. HOME MEDICATIONS: The patient was supposed to be on Dilantin. It is unclear if he was actively taking it at home. PHYSICAL EXAMINATION: Vital Signs: His blood pressure is 155/69, pulse 127, respiration 24, temperature is 98.1. HEENT: Remarkable for reactive pupils, but unresponsive state. He grimaces with noxious stimuli. His breath sounds are coarse, but there was no rhonchi or wheezing. Cardiovascular: Reveals a tachycardia, with a regular rhythm. Abdomen: Soft and nontender, with normoactive bowel sounds. He is incontinent of urine. Extremities: There is no evidence of edema. OBJECTIVE DATA: CBC of 13.4, with hematocrit of 42.2, and a white count of 9.86. He has 433,000 platelets. His blood gas reveals a pH of 6.99, with a pCO2 of 40 and a PO2 of 101. His arterial lactate is greater than 20. On serum chemistries, sodium is 136, potassium 4.6, chloride 91, CO2 14, BUN 15, creatinine 0.8, with a glucose of 170. His calcium is 10.2, with a total bilirubin of 0.10, AST 19, ALT 21, alkaline phosphatase 81, total protein 8.1 and albumin 4.3. His ammonia level is 190, and his CK is 96. IMPRESSION: 1. Seizure disorder. 2. Alcoholic encephalopathy. 3. Altered mental status. RECOMMENDATION: 1. The patient is being transported to the ICU, bed 11, for further management. 2. He should receive oral lactulose once his mental status has improved, in order to the correct the hepatic encephalopathy. 3. It is reasonable to place a nasogastric tube to allow for administration of the lactulose and other medications. 4. A Dilantin level was drawn and is pending. 5. Please repeat his blood gas in the next 8-10 hours to ensure that his lactate level is improving post seizure. 6. Please obtain a CRP so that we have an interval reassessment. It should be noted that his CRP on March 20 was [id number]. 7. Please obtain a PT and INR to assess his liver function status. 8. Additional recommendations to follow based on his clinical course. cc: MD Sparkle Zuñiga MD
[2017-03-24 22:23] LABS: BILIRUBIN URINE NEGATIVE (NEGATIVE); BLOOD URINE LARGE (NEGATIVE); COLOR YELLOW; GLUCOSE URINE NEGATIVE (NEGATIVE); LEUKOCYTES URINE NEGATIVE (NEGATIVE); NITRITE URINE NEGATIVE (NEGATIVE); PROTEIN URINE 30 mg/dL (NEGATIVE); TURBIDITY URINE HAZY (CLEAR); UROBILINOGEN URINE NORMAL (NORMAL)
[2017-03-24 22:24] LABS: URINE MICRO REVIEW NEEDED? YES
[2017-03-24 22:25] LABS: UR EPITHELIAL CELLS >10 /HPF (<10); URINE BACTERIA NEGATIVE /HPF; URINE RBC <10 /HPF (<10); URINE WBC <10 /HPF (<10)
[2017-03-24 22:30] LABS: URINE CASTS GRANULAR PRESENT
[2017-03-25] MEDS: ATIVAN IV PRN ×3 (00:49→20:25)
--- NOTE | 2017-03-25 03:51 | PROGRESS NOTE ---
DATE: 03/23/2017 SUBJECTIVE: The patient is resting comfortably in bed. He has no complaints. OBJECTIVE: Vital Signs: Temperature 97.3 degrees, blood pressure 121/79, heart rate 118, respirations 20, O2 saturations 97% on room air. General: This is an elderly male lying in bed in no acute distress. Heart: S1, S2. Normal. Tachycardic. Lungs: Clear to auscultation bilaterally. Abdomen: Positive bowel sounds. Soft, nontender, nondistended. Extremities: No edema. No cyanosis. No calf tenderness. Neuro: The patient is alert and oriented x3. LABS: Sodium 133, potassium 4.4, chloride 90, CO2 25, BUN 6, creatinine 0.5, glucose 97. ASSESSMENT AND PLAN: 1. Pneumonia. Continue on Rocephin. 2. Bacteremia secondary to Moraxella. Continue on IV antibiotic therapy. 3. Acute sinusitis. Continue with IV antibiotic therapy. 4. Alcohol abuse. Aware. 5. Right and left lung nodules. The patient will follow up with Pulmonary as outpatient for repeat CT scan. 6. Seizure disorder. The patient is not on any seizure medication and he has not had any further seizures. 7. Deep vein thrombosis prophylaxis. Continue on Lovenox. 8. Continue with physical therapy. cc: Sparkle Flowers MD
[2017-03-25] MEDS: DUONEB (A & A) INH SCH ×4 (04:55→22:42)
[2017-03-25 04:58] LABS: ALLEN TEST YES; BE 2.9 mmoll (-3.0-3.0); BLOOD TYPE ARTERIAL; DRAW SITE R RADIAL; METHB 1.7 % (0.0-1.5); O2(CT) 18.4 mL/dL (15.0-23.0); PCO2(98.6) 34 mmHg (35-45); PO2(98.6) 89 mmHg (60-100); SAMPLE BLOOD; SAO2 98.1 % (95.0-100.0); THB 13.7 g/dL (11.5-17.4); pH(98.6) 7.49 (7.35-7.45)
[2017-03-25 05:00] LABS: MODALITY ROOM AIR
[2017-03-25 05:14] LABS: MONO# 1.59 X1000 (0.11-0.59)
[2017-03-25 05:15] LABS: BASO% 0.6 % (0.0-0.8); EOS# 0.09 X1000 (0.0-0.7); EOS% 1.3 % (0.0-10.0); HEMATOCRIT 37.8 % (42.0-52.0); HEMOGLOBIN 12.7 g/dL (14.0-18.0); IMM GRAN# 0.06 X1000 (0.0-0.04); IMM GRAN% 0.9 % (0.0-0.5); LYMPH# 1.61 X1000 (1.2-3.4); LYMPH% 23.4 % (20.5-51.1); MANUAL DIFF NEEDED? YES; MCH 28.2 PG (27-31); MCHC 33.6 g/dL (33-37); MONO% 23.1 % (1.7-9.3); MPV 8.8 FL (7.4-10.4); NEUT% 50.7 % (42.2-75.2); PLT 424 X1000 (130-400)
[2017-03-25 05:27] LABS: ALBUMIN 3.9 g/dL (3.5-5.0); ALKALINE PHOSPHATASE 69 U/L (32-122); DIRECT BILIRUBIN < 0.20 mg/dL (0.00-0.20); GOT 19 U/L (10-34); GPT 17 U/L (10-44); TOTAL BILIRUBIN 0.17 mg/dL (0.20-1.00); TOTAL PROTEIN 7.9 g/dL (6.3-8.3)
[2017-03-25] MEDS: KEPPRA 500 MG in NS 100 ML IV SCH ×2 (05:40→19:18)
[2017-03-25 05:41] LABS: AGAP 14; BUN 11 mg/dL (8-22); CALCIUM 9.3 mg/dL (8.8-10.2); CHLORIDE 100 mmol/L (98-107); COSMO 275; POTASSIUM 4.2 mmol/L (3.5-5.1); SODIUM 138 mmol/L (136-145); TCO2 24 mmol/L (25-35)
[2017-03-25] MEDS: PRILOSEC PO SCH (06:12)
[2017-03-25 07:45] LABS: BANDS 1 % (0-1); LYMPHS 23 % (21-51); MONO 18 % (1-9)
--- NOTE | 2017-03-25 08:19 | Diag Imaging Result Doc PS360 ---
EXAM: CT PARANASAL SINUSES HISTORY: sinusitis TECHNIQUE: CT sinuses without contrast. Dose reduction protocol. COMPARISON: 02/08/2017 FINDINGS: There is minimal mucosal thickening within each maxillary sinus and ethmoid sinus. There is moderate mucosal thickening in the right frontal sinus. No sinus opacification. No air-fluid levels. No bone destruction. No bony expansion. IMPRESSION: Mild sinusitis. Electronically signed by Bert Knight 03/25/2017 8:16 AM
--- NOTE | 2017-03-25 08:23 | Diag Imaging Result Doc PS360 ---
EXAM: CHEST-1 VIEW INDICATION: pneumonia TECHNIQUE: One view COMPARISON: 03/24/2017 FINDINGS: The patient is rotated slightly toward the right. Trace bibasilar atelectasis is unchanged. No new consolidation is identified. Cardiac silhouette is stable. IMPRESSION: Stable chest. Electronically signed by Binh Jackson 03/25/2017 8:21 AM
[2017-03-25] MEDS: LACTULOSE PO SCH ×3 (08:27→19:17)
[2017-03-25] MEDS: NICODERM PATCH TD SCH (08:27)
[2017-03-25] MEDS: FLONASE NAS SCH ×2 (08:28→20:19)
[2017-03-25] MEDS ORDERED: LACTULOSE NG SCH (09:00)
[2017-03-25 10:40] LABS: HEMOGLOBIN A1C 5.8 % (4.8-6.0)
--- NOTE | 2017-03-25 15:55 | PROGRESS NOTE ---
DATE: 03/25/2017 SUBJECTIVE: The patient is resting comfortably in bed. The patient did have some agitation last night. No other acute events noted. OBJECTIVE: Vital Signs: Temperature 97.9 degrees, blood pressure 112/59, heart rate 98, respirations 24, O2 saturations 96% on room air. General: This is a chronically ill-appearing elderly male lying in bed in no acute distress. Heart: S1, S2. Normal. Lungs : Equal air entry bilaterally. No crackles. No rales. Abdomen: Positive bowel sounds. Soft, nontender, nondistended. Extremities: No edema. No cyanosis. No calf tenderness. Neurologic: The patient is lethargic but will awaken when his name is called. LAB: White blood cell count 6.8, hemoglobin 12, hematocrit 37, platelets 424, 000, sodium 138, potassium 4.2, chloride 100, CO2 24, BUN 11, creatinine 0.6, glucose 96. ASSESSMENT AND PLAN: 1. Seizure disorder. The patient is now on Keppra. No further seizures noted. 2. Pneumonia. Continue on IV antibiotic therapy. 3. Acute sinusitis. Continue with IV antibiotic therapy. 4. Bacteremia secondary to Moraxella. Continue on Rocephin. 5. Alcohol abuse. Aware. 6. Lung nodules. The patient will require outpatient followup. 7. Deep vein thrombosis prophylaxis. Continue on Lovenox. cc: Sparkle Flowers MD MTDD
--- NOTE | 2017-03-25 17:26 | PROGRESS NOTE ---
DATE: 03/25/2017 SUBJECTIVE: The patient states that he feels fine. He has been noted to be quite irritable today. He denies nausea with vomiting, abdominal pain, and diarrhea. He had no bowel movements overnight. The patient states that he would like to have a couple coffee. OBJECTIVE: Vital signs: On examination, his blood pressure is 95/69, pulse of 103, respiration 24, temperature of 98.1 degrees. Pulmonary: Lungs are clear to auscultation with normal expiratory effort. Cardiovascular: Reveals regular rate and rhythm with no murmurs, gallops, or rubs. Abdominal: Reveals normoactive bowel sounds. The abdomen is soft and nontender with no rebound or guarding. OBJECTIVE DATA: Reveals a hemoglobin of 12.7 with hematocrit of 37.8 and a white count of 6.87. He has 424,000 platelets. His blood gas reveals a pH of 7.49, pCO2 of 34, and a PO2 of 89 on room air. Sodium is 138, potassium 4.2, chloride 100, CO2 24, BUN 11, creatinine 0.6 with a glucose of 96. His hemoglobin A1c is 5.8. Calcium is 9.3, total bilirubin 0.17, AST 19, ALT 17, alkaline phosphatase 69, total protein 7.9 and albumin 3.9. On 03/24/2017, his PT was 11.5 with an INR of 1.09 and his CRP was 36.50. RECOMMENDATION: 1. The patient appears to have had a seizure yesterday when he was found unresponsive. He is returned back to his baseline although he is somewhat agitated. Therefore, I recommend continuing conservative management. 2. Continue omeprazole, but increase to 40 mg once daily. 3. Continue lactulose t.i.d. I would titrate the dose to 1-2 soft bowel movements per day. If he remains constipated, one can stimulate his bowel movements with Dulcolax suppository. 4. From a GI perspective, the patient is stable. Therefore, I will sign off and follow at a distance. Please call us if there is a change in his clinical course. This was discussed with Dr. Sparkle Flowers MD. cc: MD Sparkle Zuñiga MD
--- NOTE | 2017-03-25 17:33 | PROGRESS NOTE ---
DATE: 03/25/2017 SUBJECTIVE: based on the data obtained by my nurse practitioner, Mee Emerson, and my examination of the patient and discussion with the patient about his treatment, I have come up with a treatment plan which is being dictated now by my nurse practitioner. cc: Carlin Gordillo MD
--- NOTE | 2017-03-25 17:36 | PROGRESS NOTE ---
DATE: 03/25/2017 PRESENT ILLNESS: Mr. Jimenez has a Moraxella and Streptococcus anginosus bacteremia as well as a sinusitis and pneumonia. MEDICATIONS: The patient is on Rocephin 2 g IV daily. We will recommend a 14 day course. Today is day 3. PHYSICAL EXAM: Vital Signs: Temperature 98.1 degrees, heart rate 108, respiratory rate 22, blood pressure 95/69. Generally: This is an ill appearing and somewhat malnourished middle-aged gentleman who is lying in bed, in no acute distress. Lungs: Clear to upper and middle lobes with crackles to bases. He is on room air with respirations even and nonlabored. HEENT: No drainage noted from his nose or ears. With no tenderness upon palpation of sinuses. Cardiovascular: Heart rate is regular. No edema noted to extremities. Pulses are palpable to radial and pedal pulses. Abdomen: Soft, flat and nontender with bowel sounds auscultated. Neuro: Patient is awake and alert. He knows who he is and where he is but does not know the date, month or year. LAB AND X-RAY: Mr. Jimenez apparently was brought to the ICU yesterday because he was found slumped over. At that time his blood gas showed a 6.99 pH. today his pH is 7.49, CO2 is 34, PO2 is 89 on room air. Hematology today shows a white count of 6.87, hemoglobin 12.7, platelet count is 424,000. His chemistry shows a creatinine of 0.6, and a GFR of greater than 60. He does have a Hernandez catheter which has been inserted with no WBCs or bacteria noted in the urinalysis. He had a CT of his sinuses today which shows mild sinusitis. His chest x-ray shows trace bibasilar atelectasis but no new consolidation. ASSESSMENT AND PLAN: The patient has Moraxella and Streptococcus anginosus bacteremia. This is day 3 on Rocephin, we will continue for a total of 14 day treatment. The previous plans have been discussed with and recommended by Dr. Gordillo. COMORBIDITIES: Include alcohol abuse, cigarette smoking, and alcoholic seizures. Dictated by JUDITH Cleary, for Dr. Carlin Gordillo. Dictated by JUDITH Morfin for Carlin Gordillo MD cc: JUDITH Morfin MD
[2017-03-25] MEDS: ROCEPHIN 2 GM in NS 50 ML IV SCH (19:17)
[2017-03-25] MEDS: LOVENOX SUBQ SCH (20:20)
[2017-03-26] MEDS: ATIVAN IV PRN ×2 (01:21→22:36)
[2017-03-26] MEDS: DUONEB (A & A) INH SCH ×4 (03:28→21:15)
[2017-03-26] MEDS: KEPPRA 500 MG in NS 100 ML IV SCH ×2 (05:07→17:08)
[2017-03-26 05:56] LABS: AGAP 14; BUN 14 mg/dL (8-22); CALCIUM 9.9 mg/dL (8.8-10.2); CHLORIDE 101 mmol/L (98-107); COSMO 276; SODIUM 138 mmol/L (136-145); TCO2 23 mmol/L (25-35)
[2017-03-26 06:02] LABS: HEMATOCRIT 41.4 % (42.0-52.0); HEMOGLOBIN 13.8 g/dL (14.0-18.0); MCH 28.3 PG (27-31); MCHC 33.3 g/dL (33-37); MPV 9.3 FL (7.4-10.4); RBC 4.87 XMIL (4.7-6.1)
[2017-03-26] MEDS: PRILOSEC PO SCH (06:07)
[2017-03-26] MEDS: LACTULOSE PO SCH ×3 (10:01→16:30)
[2017-03-26] MEDS: NICODERM PATCH TD SCH (10:02)
[2017-03-26] MEDS: FLONASE NAS SCH ×2 (10:02→20:58)
--- NOTE | 2017-03-26 13:43 | Diag Imaging Result Doc PS360 ---
EXAM: MRI BRAIN W/O CONTRAST INDICATION: encephalopathy/seizure disorder COMPARISON: 03/19/2017 FINDINGS: There is extensive metallic susceptibility artifact at the posterior superior aspect of the scan on the left related to a tiny embedded fragment of metal in the skull that can be seen on a prior CT dated 02/08/2017. There is no evidence of acute infarct. There is extensive T2/FLAIR signal hyperintensity in the periventricular and subcortical white matter suggesting advanced microangiopathy, stable. There is milder pontine white matter microangiopathy. There is no discrete intracranial mass, mass effect, or intracranial hemorrhage. The surrounding soft tissues and bony structures are essentially unremarkable. IMPRESSION: Extensive white matter microangiopathy that is stable. No definite acute intracranial pathology. Electronically signed by Binh Jackson 03/26/2017 1:40 PM
--- NOTE | 2017-03-26 16:08 | PROGRESS NOTE ---
DATE: 03/26/2017 SUBJECTIVE: The patient remains confused. No acute events noted overnight. OBJECTIVE: Vital Signs: Temperature 96 degrees, blood pressure 139/88, heart rate 83, respirations 21, O2 saturations 95% on room air. General: This is an chronically ill-appearing male, lying in bed, in no acute distress. Heart: S1, S2. Normal. Regular rate and rhythm. Lungs: Clear entry bilaterally. No crackles. No rales. Abdomen: Positive bowel sounds. Soft, nontender, nondistended. Extremities: No edema. No cyanosis. No calf tenderness. Neurologic: The patient is oriented to self only. He is able to move all 4 extremities. LABORATORIES: White blood cell count 6.6, hemoglobin 13, hematocrit 41, platelets 419,000. Sodium 138, potassium 4, chloride 101, CO2 23, BUN 14, creatinine 0.5, glucose 88. ASSESSMENT AND PLAN: 1. Seizure disorder. Continue on Keppra. 2. Pneumonia. Continue on IV antibiotic therapy as directed by Infectious Disease. 3. Acute sinusitis. Continue with IV antibiotic therapy. 4. Bacteremia secondary to Moraxella. Continue on Rocephin. 5. Alcohol abuse. Aware. 6. Lung nodules. Aware. We will arrange for outpatient follow-up. 7. Deep vein thrombosis prophylaxis. Continue on Lovenox. 8. The patient is stable for transfer to the medical floor. cc: Sparkle Flowers MD
[2017-03-26] MEDS: ROCEPHIN 2 GM in NS 50 ML IV SCH (16:30)
--- NOTE | 2017-03-26 17:34 | PROGRESS NOTE ---
DATE: 03/26/2017 SUBJECTIVE: Mr. Jimenez has as strep anginosus and Moraxella bacteremia as well as some pneumonia and sinusitis. MEDICATIONS: He is on day 4 of Rocephin 2 g IV daily. We plan a 14-day course. OBJECTIVE: Vital signs are 96.4 temperature, heart rate 112, respiratory rate 23, blood pressure 111/74. Generally, this is a chronically ill-appearing, somewhat malnourished, middle-aged gentleman who is lying in bed, mildly agitated due to IV restart with the nurse. Lungs are clear to upper and middle lobes with mild crackles to the right base and diminished bilaterally with shallow respirations even and nonlabored. HEENT: Atraumatic and normocephalic. No drainage noted from his nose or ears. No tenderness upon palpation of the sinuses. CV: His heart rate is regular sinus rhythm. No edema noted to his extremities. Radial and pedal pulses are palpable. Abdomen: Soft, flat and nontender with auscultated bowel sounds. Neuro: The patient is awake and alert with moments of confusion at times. He moves all extremities well. Talkative and mildly agitated at this point. LAB AND X-RAY: Today his WBC is 6.61, hemoglobin is 13.8, platelet count is 419,000, his creatinine is 0.5, his GFR is greater than 60. He did have an MRI of his brain today, which shows extensive white matter microangiopathy that is stable, otherwise no acute intracranial pathology. ASSESSMENT AND PLAN: Mr. Jimenez has a Streptococcus anginosus and Moraxella bacteremia that is on day 3 of Rocephin. We will continue for 14 days of treatment. The previous plans have been discussed with and recommended by Dr. Gordillo. Comorbidities: Mr. Jimenez is an alcohol abuser, cigarette smoker and has a history of multiple alcoholic seizures. Dictated by JUDITH Morfin for Carlin Gordillo MD cc: JUDITH Morfin MD
--- NOTE | 2017-03-26 17:54 | PROGRESS NOTE ---
DATE: 03/26/2017 Based on the data collected by my nurse practitioner Mee Emerson and my physical exam and discussing with the patient his treatment, I have devised a treatment plan which my nurse practitioner has dictated. cc: Carlin Gordillo MD
[2017-03-26] MEDS: LOVENOX SUBQ SCH (20:59)
[2017-03-27] MEDS: DUONEB (A & A) INH SCH ×4 (04:00→22:51)
[2017-03-27] MEDS: ATIVAN IV PRN (04:45)
[2017-03-27] MEDS: KEPPRA 500 MG in NS 100 ML IV SCH ×2 (05:13→16:59)
[2017-03-27 05:57] LABS: HEMATOCRIT 39.5 % (42.0-52.0); HEMOGLOBIN 12.9 g/dL (14.0-18.0); MCH 27.7 PG (27-31); MCHC 32.7 g/dL (33-37); MCV 84.8 FL (81-99); MPV 9.2 FL (7.4-10.4); RBC 4.66 XMIL (4.7-6.1)
[2017-03-27] MEDS: PRILOSEC PO SCH (06:00)
[2017-03-27 06:08] LABS: INR 1.25; PROTIME 13.3 Seconds (9.2-11.7)
[2017-03-27 06:14] LABS: AGAP 14; BUN 10 mg/dL (8-22); CALCIUM 9.3 mg/dL (8.8-10.2); CHLORIDE 101 mmol/L (98-107); COSMO 268; POTASSIUM 4.7 mmol/L (3.5-5.1); SODIUM 135 mmol/L (136-145); TCO2 20 mmol/L (25-35)
[2017-03-27] MEDS: FLONASE NAS SCH ×2 (08:27→21:44)
[2017-03-27] MEDS: NICODERM PATCH TD SCH (08:27)
[2017-03-27] MEDS: LACTULOSE PO SCH ×3 (08:27→16:49)
--- NOTE | 2017-03-27 16:28 | PROGRESS NOTE ---
DATE: 03/27/2017 SUBJECTIVE: The patient is resting comfortably in bed. He still has periods of confusion where he does not make sense. OBJECTIVE: Vital Signs: Temperature 97.3 degrees, blood pressure 117/72, heart rate 98, respirations 18, O2 saturations 99% on room air. General: This is a chronically ill-appearing, elderly male, lying in bed, in no acute distress. Heart: S1, S2 normal. Tachycardic. Lungs: Equal air entry bilaterally. No crackles. No rales. Abdomen: Positive bowel sounds. Soft, nontender, nondistended. Extremities: No edema. No cyanosis. No calf tenderness. Neurologic: The patient is alert and oriented to person and place. He is able to move all 4 extremities. LABORATORY DATA: White blood cell count 5.3, hemoglobin 12, hematocrit 39, platelets 475,000. Sodium 135, potassium 4.7, chloride 101. CO2 of 20. BUN 7, creatinine 0.6. ASSESSMENT AND PLAN: 1. Bacteremia secondary to Streptococcus and Moraxella. Continue on IV antibiotic therapy as directed by Dr. Gordillo. 2. Seizure disorder. Continue on Keppra. 3. Pneumonia. Continue with the current IV antibiotic regimen. 4. Acute sinusitis. Continue on antibiotic therapy. 5. Alcohol abuse. Aware. 6. Lung nodules. Aware. 7. Deep vein thrombosis prophylaxis. Continue on Lovenox. 8. Will consult physical therapy. The patient is stable for transfer to the medical floor. cc: Sparkle Flowers MD MTDD
[2017-03-27] MEDS: ROCEPHIN 2 GM in NS 50 ML IV SCH (16:49)
--- NOTE | 2017-03-27 17:42 | PROGRESS NOTE ---
DATE: 03/27/2017 PRESENT ILLNESS: Mr. Jimenez has a strep anginosus and Moraxella bacteremia as well as some pneumonia and sinusitis. MEDICATIONS: He is on his 5th day of Rocephin, 2 g IV with a 14 day course planned. PHYSICAL EXAMINATION: Vital Signs: Temperature is 97.3, heart rate 98, respiratory rate 24, blood pressure 117/72. He is 99% on room air. Generally: This is a chronically ill-appearing, middle-aged man lying in the bed in no acute distress. Lungs: Generally clear, but he does have some mild crackles. To the right base. Respirations are even and unlabored. HEENT: Atraumatic, normocephalic. No drainage noted from his nose or ears. No tenderness upon palpation of his sinuses. Cardiovascular: Heart rate is regular sinus rhythm. No edema noted. Radial and pedal pulses are palpable bilaterally. Abdomen: Soft. Nontender. Nondistended with bowel sounds auscultated. Neuro: Patient is awake and alert. He moves all extremities well. He is talkative. LABS AND X-RAY: White count today is 5.37, hemoglobin is 12.9, platelet count is 475. Creatinine is 0.6, GFR is greater than 60. He has no imaging reports today. ASSESSMENT AND PLAN: Mr. Jimenez has a Moraxella and Streptococcus anginosus bacteremia and is on day 5 of his Rocephin, which we will continue for 14 days. The previous plans have been discussed with and recommended by Dr. Gordillo. COMORBIDITIES: Mr. Jimenez is an alcohol abuser and has had multiple alcoholic seizures. He is a cigarette smoker. Dictated by JUDITH Morfin for Carlin Gordillo MD cc: JUDITH Morfin MD
--- NOTE | 2017-03-27 17:50 | PROGRESS NOTE ---
DATE: 03/27/2017 The patient data collected by my nurse practitioner, Mee Emerson, and my discussing with the patient his treatment and examining the patient, I have come up with a treatment plan which is being dictated right now by my nurse practitioner. cc: Carlin Gordillo MD
--- NOTE | 2017-03-27 21:27 | PROGRESS NOTE ---
DATE: 03/27/2017 SUBJECTIVE: The patient states that he feels considerably better. He is back to baseline. He states that he feels great. He had multiple questions about his diet which were dressed. He states that his bowels are moving regular. He is encouraged to follow up with his primary care physician upon discharge. cc: MD Sparkle Zuñiga MD
[2017-03-27] MEDS: LOVENOX SUBQ SCH (21:45)
[2017-03-28] MEDS: DUONEB (A & A) INH SCH ×4 (03:48→22:56)
[2017-03-28 05:50] LABS: AGAP 11; BUN 12 mg/dL (8-22); CALCIUM 8.9 mg/dL (8.8-10.2); CHLORIDE 99 mmol/L (98-107); COSMO 274; POTASSIUM 4.3 mmol/L (3.5-5.1); SODIUM 137 mmol/L (136-145); TCO2 27 mmol/L (25-35)
[2017-03-28] MEDS: KEPPRA 500 MG in NS 100 ML IV SCH ×3 (05:50→18:15)
[2017-03-28] MEDS: PRILOSEC PO SCH ×2 (05:50→07:23)
[2017-03-28] MEDS: NICODERM PATCH TD SCH (08:52)
[2017-03-28] MEDS: LACTULOSE PO SCH ×3 (08:52→22:48)
[2017-03-28] MEDS: FLONASE NAS SCH ×2 (08:53→22:48)
--- NOTE | 2017-03-28 14:00 | PROGRESS NOTE ---
DATE: 03/28/2017 PRESENT ILLNESS: The patient has a streptococcal and Moraxella bacteremia, pneumonia, and sinusitis. MEDICATIONS: The patient is been on Rocephin now for 6 days. PHYSICAL EXAMINATION: Vital Signs: Temperature is 98.5 degrees, pulse 88, respirations 20, blood pressure 103/70. General Appearance: The patient in general looks chronically ill. He is middle-aged. He is in no acute distress. Cardiovascular: Heart rate is regular. Lungs: Clear to auscultation. Abdomen: Soft and nontender. Extremities: Legs no edema or erythema. LAB AND X-RAY: The patient's creatinine 0.6. GFR is greater than 60. There is no new CBC for today. There is no new radiographic study today. ASSESSMENT AND PLAN: As mentioned above, the patient has a bacteremia pneumonia and sinusitis. I plan on continuing Rocephin for a total of 14 days. I am going to repeat the patient's sinus and chest x-rays. Also, I am going to repeat the CBC. COMORBIDITIES: He is an alcoholic, he has seizures, and is a cigarette smoker. cc: Carlin Gordillo MD
[2017-03-28] MEDS: ROCEPHIN 2 GM in NS 50 ML IV SCH ×2 (14:51→16:52)
--- NOTE | 2017-03-28 14:57 | Diag Imaging Result Doc PS360 ---
CT PARANASAL SINUSES - 03/28/2017 INDICATION: sinusitis TECHNIQUE: A CT dose reduction protocol was used. COMPARISON: 03/25/2017 FINDINGS: There is improvement in the maxillary sinusitis bilaterally, with some residual mucus in the left maxillary sinus. The other sinuses are nearly clear as well. Mastoids and middle ears are clear. Soft tissues are clear. IMPRESSION: Significant improvement, with near complete resolution of the sinusitis. Electronically signed by Nguyễn Calloway 03/28/2017 2:54 PM
--- NOTE | 2017-03-28 15:13 | Diag Imaging Result Doc PS360 ---
CHEST-2 VIEWS - 03/28/2017 INDICATION: pneumonia TECHNIQUE: COMPARISON: 03/25/2017 FINDINGS: Lung volumes are low with some bibasilar atelectasis similar to prior. No new or focal infiltrates. Heart size and pulmonary vascularity is normal. IMPRESSION: Low lung volumes with nonspecific bibasilar atelectasis stable from prior. Electronically signed by Nguyễn Calloway 03/28/2017 3:11 PM
--- NOTE | 2017-03-28 15:54 | PROGRESS NOTE ---
DATE: 03/28/2017 SUBJECTIVE: The patient is resting comfortably in bed. He has no complaints. OBJECTIVE: Vital Signs: Temperature 98 degrees, blood pressure 103/70, heart rate 88, respirations 15, O2 saturations 100% on room air. General: This is a chronically ill-appearing, elderly male, lying in bed in no acute distress. Head: Normocephalic, atraumatic. Heart: S1, S2. Normal. Regular rate and rhythm. Lungs: Equal air entry bilaterally. No crackles. No rales. Abdomen: Positive bowel sounds. Soft, nontender, nondistended. Extremities: No edema. No cyanosis. Neurologic: The patient is alert and oriented x3. LABS: None. ASSESSMENT AND PLAN: 1. Bacteremia secondary to Streptococcus and Moraxella. Continue on intravenous antibiotic therapy. 2. Pneumonia. Continue with intravenous antibiotics. 3. Alcohol abuse. Aware. 4. Lung nodules. Aware. 5. Sinusitis. Improved. 6. Deep vein thrombosis prophylaxis. Continue on Lovenox. cc: Sparkle Flowers MD
[2017-03-28] MEDS: LOVENOX SUBQ SCH (22:48)
[2017-03-29] MEDS: DUONEB (A & A) INH SCH ×4 (03:57→21:13)
[2017-03-29] MEDS: KEPPRA 500 MG in NS 100 ML IV SCH ×2 (05:24→17:39)
[2017-03-29 06:03] LABS: MANUAL DIFF NEEDED? NO
[2017-03-29 06:12] LABS: BASO% 0.8 % (0.0-0.8); EOS# 0.12 X1000 (0.0-0.7); EOS% 3.1 % (0.0-10.0); HEMATOCRIT 37.2 % (42.0-52.0); HEMOGLOBIN 12.2 g/dL (14.0-18.0); LYMPH# 1.81 X1000 (1.2-3.4); LYMPH% 47.5 % (20.5-51.1); MCHC 32.8 g/dL (33-37); MCV 85.3 FL (81-99); MONO# 0.65 X1000 (0.11-0.59); MONO% 17.1 % (1.7-9.3); MPV 9.1 FL (7.4-10.4); NEUT% 31.5 % (42.2-75.2); PLT 462 X1000 (130-400); RBC 4.36 XMIL (4.7-6.1)
[2017-03-29] MEDS: PRILOSEC PO SCH (06:28)
[2017-03-29 06:31] LABS: AGAP 11; BUN 9 mg/dL (8-22); CALCIUM 9.4 mg/dL (8.8-10.2); CHLORIDE 100 mmol/L (98-107); COSMO 274; POTASSIUM 4.3 mmol/L (3.5-5.1); SODIUM 138 mmol/L (136-145); TCO2 27 mmol/L (25-35)
--- NOTE | 2017-03-29 07:42 | PROGRESS NOTE ---
DATE: 03/29/2017 SUBJECTIVE: The patient has streptococcal and Moraxella bacteremia, pneumonia, and sinusitis. MEDICATIONS: The patient is on Rocephin. This is the 6th day of treatment. PHYSICAL EXAMINATION: Vital Signs: Temperature is 98.8, pulse 88, respirations 20, blood pressure 117/72. Generally: This is a chronically ill-appearing middle-age male. He is in no acute distress this morning. Lungs: Clear to auscultation. Cardiovascular: Regular heart rate. Abdomen: Soft and nontender. Ear/nose/throat: No drainage noted from the nose or ears. CBC shows a white count of 3810, hemoglobin 12.2, and platelet count 462,000. CT scan of the sinuses shows nearly complete resolution of the sinusitis. Chest x-ray shows some bibasilar atelectasis. ASSESSMENT AND PLAN: The patient has bacteremia, pneumonia, and sinusitis. I think as the pneumonia and sinusitis have pretty much cleared, and the patient will need another week of antibiotic therapy, namely IV Rocephin. COMORBIDITIES: Alcoholism, seizures, and cigarette smoking. cc: Carlin Gordillo MD
--- NOTE | 2017-03-29 08:19 | PROGRESS NOTE ---
DATE: 03/29/2017 ADDENDUM REPORT LAB AND RADIOGRAPHIC STUDIES: CBC shows a white count of 3810, hemoglobin 12.2, and platelet count 462,000. Creatinine is 0.6. GFR is greater than 60. The patient's CT scan of the sinuses showed almost complete clearing of the bilateral sinusitis the patient had. The patient's chest x- ray shows bibasilar atelectasis. cc: Carlin Gordillo MD
[2017-03-29] MEDS: LACTULOSE PO SCH ×3 (09:23→20:54)
[2017-03-29] MEDS: NICODERM PATCH TD SCH (09:23)
[2017-03-29] MEDS: FLONASE NAS SCH ×2 (09:23→20:54)
[2017-03-29] MEDS: ROCEPHIN 2 GM in NS 50 ML IV SCH ×2 (14:57→18:12)
--- NOTE | 2017-03-29 15:48 | PROGRESS NOTE ---
DATE: 03/29/2017 SUBJECTIVE: The patient is resting comfortably in bed. No acute events noted overnight. OBJECTIVE: Vital Signs: Temperature 98.6 degrees, blood pressure 100/64, heart rate 101, respirations 14. O2 saturations 100% on room air. General: This is a chronically ill-appearing, elderly male, lying in bed, in no acute distress. Head: Normocephalic atraumatic. Heart: S1, S2. Normal. Regular rate and rhythm. Lungs: Equal air entry bilaterally. No crackles. No rales. Abdomen positive. Bowel sounds soft, nontender, nondistended. Extremities: No edema. No cyanosis. No calf tenderness. Neurologic: The patient is alert and oriented x3. LABORATORY DATA: Labs reviewed. ASSESSMENT AND PLAN: 1. Bacteremia secondary to Streptococcus and Moraxella. Continue on Rocephin. 2. Pneumonia. Continue on Rocephin. 3. Sinusitis. Improved. 4. Lung nodules. Aware. The patient will follow up with a dynamite reclaimer as outpatient. 5. Deep vein thrombosis prophylaxis. Continue on Lovenox. cc: Sparkle Flowers MD MTDD
[2017-03-29] MEDS: LOVENOX SUBQ SCH (20:54)
[2017-03-30] MEDS: DUONEB (A & A) INH SCH ×5 (03:20→22:10)
[2017-03-30] MEDS: KEPPRA 500 MG in NS 100 ML IV SCH ×2 (07:38→17:22)
[2017-03-30] MEDS: PRILOSEC PO SCH (07:38)
[2017-03-30] MEDS: NICODERM PATCH TD SCH (08:49)
[2017-03-30] MEDS: FLONASE NAS SCH ×2 (08:49→19:44)
[2017-03-30] MEDS: LACTULOSE PO SCH ×3 (08:49→17:06)
--- NOTE | 2017-03-30 15:33 | PROGRESS NOTE ---
DATE: 03/30/2017 SUBJECTIVE: The patient is resting comfortably in bed. No acute events noted overnight. OBJECTIVE: Vital Signs: Temperature 98.2 degrees, blood pressure 117/71, heart rate 88, respirations 18, O2 saturation 98% on room air. General: This is a chronically ill-appearing male, lying in bed in no acute distress. Heart: S1, S2. Normal. Regular rate and rhythm. Lungs: Equal air entry bilaterally. No crackles, no rales. Abdomen: Positive bowel sounds. Soft, nontender, nondistended. Extremities: No edema. No cyanosis. No calf tenderness. Neurologic: The patient is alert and oriented x3. LABS: Reviewed. ASSESSMENT AND PLAN: 1. Bacteremia secondary to Streptococcus and Moraxella. Continue on Rocephin. 2. Pneumonia. Continue on intravenous antibiotic therapy. 3. Acute sinusitis. Continue with antibiotic therapy. 4. Alcohol abuse. The patient has been counseled about cessation. 5. Deep vein thrombosis prophylaxis. Continue on Lovenox. 6. Lung nodules. Aware. 7. Sinusitis. Improved. cc: Sparkle Flowers MD
[2017-03-30] MEDS: ROCEPHIN 2 GM in NS 50 ML IV SCH (17:18)
[2017-03-30] MEDS: LOVENOX SUBQ SCH (19:44)
[2017-03-31] MEDS: DUONEB (A & A) INH SCH ×4 (03:36→19:24)
[2017-03-31] MEDS: PRILOSEC PO SCH ×2 (05:01→06:29)
[2017-03-31] MEDS: KEPPRA 500 MG in NS 100 ML IV SCH ×2 (05:01→17:49)
[2017-03-31] MEDS: LOVENOX SUBQ SCH ×2 (05:25→19:41)
[2017-03-31] MEDS: FLONASE NAS SCH ×3 (05:25→19:41)
[2017-03-31] MEDS: NICODERM PATCH TD SCH (08:55)
[2017-03-31] MEDS: LACTULOSE PO SCH ×3 (08:55→17:49)
[2017-03-31] MEDS: ROCEPHIN 2 GM in NS 50 ML IV SCH ×2 (14:27→17:48)
--- NOTE | 2017-04-01 02:59 | PROVIDER DOCUMENTATION ---
This chart was entered by Colleen Mccain Scribe, acting as scribe for Yogesh Infante MD. HPI-General Adult - General Chief Complaint: Altered Mental Status Stated Complaint: ams Time Seen by Provider: 03/18/17 20:51 Source: EMS Unable to obtain history due to:: altered Allergies/Adverse Reactions: Patient Allergies Allergy/AdvReac Type Severity Reaction Status Date / Time No Known Allergies Allergy Verified 03/18/17 21:21 Home Medications: Home Medication List Medication Instructions Recorded Confirmed Last Taken Type Phenytoin [Dilantin] 400 mg PO QHS 12/28/16 03/18/17 03/17/17 History - History of Present Illness -Gen Adult Nature of Presenting Problems: 66 Y/O M presents to ED with AMS. Pt was brought in by EMS from the [facility]. Pt was hooked up to a Cardaic Monitor on arrival. EMS states that they were called in for AMS. Pt has a hx of seizures, nurses unsure, pt was found standing in a pool of urine. Pt is febrile, tachycardia, tachypneic, with slurred speech. Complaining of general body aches. Location of Pain/Injury: reports: generalized Pain Radiation: reports: no radiation Quality of Pain: reports: aching Severity: reports: moderate Onset/Duration: reports: this evening Timing: reports: still present Context/Activities at Onset: reports: none Associated Symptoms: reports: fever/chills, weakness Review of Systems - Adult - REVIEW OF SYSTEMS - ADULT ROS:: unobtainable per condition Constitutional: reports: no symptoms reported Musculoskeletal: reports: muscle weakness Past History - Adult - PAST MEDICAL HISTORY-ADULT Review of Records: reports: Old Records Reviewed, Nursing Assessment Review, Medications Reviewed, Social history reviewed & non-contributory. Major Childhood Illnesses: reports: denies history Cardiovascular: reports: denies history Respiratory: reports: denies history Gastrointestinal: reports: denies history Obstetrical/Gynecological: reports: denies history Genitourinary: reports: denies history Musculoskeletal: reports: denies history Neurological: reports: cognitive dysfunction, CVA, Seizures/Epilepsy Psychiatric: reports: other (hallucinations) Endocrine/Immune: reports: denies history Other Conditions: reports: denies history - PRIOR SURGERIES/PROCEDURES Surgical/Procedure History: reports: reviewed, not pertinent - PRIOR HOSPITALIZATIONS Prior Hospitalizations: reports: none - IMMUNIZATION STATUS Childhood Immunizations: See Nurse Assessment Flu Vaccine: See Nurse Assessment - FAMILY HISTORY Family History: reviewed, not pertinent Physical Exam-General - CONSTITUTIONAL General Appearance: alert, mild distress - EYES Eyes: other (cataracts in bilateral eyes) - HEAD, EARS, NOSE, MOUTH & THROAT HENMT: normal ENT inspection, TMs normal, pharynx normal - NECK Neck: full range of motion, supple, normal inspection - RESPIRATORY Respiratory: lungs clear - CARDIOVASCULAR Cardiovascular: tachycardia - GASTROINTESTINAL (ABDOMEN) Abdominal Exam: non tender, soft - LYMPHATIC Lymphatic: no adenopathy - MUSCULOSKELETAL Back Exam: normal inspection - SKIN Integumentary: normal color Progress - PLAN OF CARE/RESULTS Progress/Plan/Lab Results: Vital Signs - 8 hr 03/18/17 20:37 03/18/17 21:03 Temperature 102.9 F H Pulse Rate 132 H Respiratory Rate 26 H Blood Pressure 146/125 157/84 O2 Sat by Pulse Oximetry 92 L 95 Orders Category Date Time Status Acetaminophen [Tylenol] Med 03/18/17 21:00 Discontinued 1,000 mg .ROUTE .STK-MED ONE Acetaminophen [Tylenol] Med 03/18/17 21:03 Discontinued 1,000 mg PO NOW ONE Result Diagrams: 03/29/17 05:30 03/29/17 05:30 - EKG 1 Time of EKG reading by physician:: 20:32 EKG Read and Signed by:: Yogesh Infante EKG Interpretation (*Must complete 3 of following elements*): Abnormal Rate: 136 Rhythm: Sinus Tachycardia QRS: LVH (with repolarization abnormality) Comments: Abnormal ECG, Right Atrial enlargement - CONSULTS/PCP/HOSPITALIST Notification #1 *Consult/PCP/Hospitalist*: Time Discussed: 00:35 Reason/Comments: Admit Consult Disposition: Admit (Admit Accepted) Departure - Departure Date of Disposition Decision: 03/18/17 Time of Disposition Decision: 11:30 DIAGNOSIS: Altered mental status Qualifiers: Altered mental status type: stupor Qualified Code(s): R40.1 - Stupor Disposition: ADMITTED INPATIENT 09 Certified Medical Emergency: Emergent Condition: Stable - Critical Care Note This patient required my direct & personal management of CC.: No Attestation - Physician/ TRISTAN Attestation Patient care was provided by Advanced Practice Provider:: No The physician spent face to face time with patient:: Yes Advanced Practice Provider documentation review:: Supervising physician onsite and consulted in the evaluation and care of this patient. The physician did have a face to face encounter with the patient. This chart was documented by the indicated scribe, (Colleen Mccain Scribe) and accurately reflects the services I performed and decisions made by me, Yogesh Infante MD, as attested by the provider's signature.
[2017-04-01] MEDS: LOVENOX SUBQ SCH (03:17)
[2017-04-01] MEDS: FLONASE NAS SCH ×2 (03:17→09:02)
[2017-04-01] MEDS: DUONEB (A & A) INH SCH ×2 (03:21→09:45)
--- NOTE | 2017-04-01 04:15 | PROGRESS NOTE ---
DATE: 03/31/2017 SUBJECTIVE: The patient is resting comfortably in bed. No acute events noted overnight. OBJECTIVE: Vital Signs: Temperature 98.3 degrees, blood pressure 113/65, heart rate 107, respirations 20, O2 saturations 100% on room air. General: This is an elderly male lying in bed in no acute distress. Heart: S1, S2. Normal. Regular rate and rhythm. Lungs: Equal air entry bilaterally. No crackles, no rales. Abdomen: Positive bowel sounds. Soft, nontender, nondistended. Extremities: No edema. No cyanosis. Neuro: The patient is alert, oriented x3. LABS: White blood cell count 3.8, hemoglobin 12, hematocrit 37, platelets 462,000, sodium 138, potassium 4.3. ASSESSMENT AND PLAN: 1. Bacteremia secondary to Streptococcus and Moraxella. Continue on Rocephin. 2. Pneumonia. Continue on IV antibiotic therapy. 3. Acute sinusitis. Improved. 4. Alcohol abuse. Aware. 5. Lung nodules. The patient will follow up as outpatient for further imaging. 6. Deep vein thrombosis prophylaxis. Continue on Lovenox. cc: Sparkle Flowers MD
[2017-04-01] MEDS: PRILOSEC PO SCH ×2 (05:28→06:15)
[2017-04-01] MEDS: KEPPRA 500 MG in NS 100 ML IV SCH (05:28)
[2017-04-01 05:45] LABS: MANUAL DIFF NEEDED? NO
[2017-04-01 05:47] LABS: BASO% 1.8 % (0.0-0.8); EOS# 0.13 X1000 (0.0-0.7); HEMATOCRIT 36.1 % (42.0-52.0); HEMOGLOBIN 11.9 g/dL (14.0-18.0); LYMPH# 1.76 X1000 (1.2-3.4); LYMPH% 40.2 % (20.5-51.1); MCH 28.1 PG (27-31); MCV 85.1 FL (81-99); MONO# 0.66 X1000 (0.11-0.59); MONO% 15.1 % (1.7-9.3); MPV 8.9 FL (7.4-10.4); NEUT% 39.9 % (42.2-75.2); PLT 464 X1000 (130-400); RBC 4.24 XMIL (4.7-6.1)
[2017-04-01 06:22] LABS: AGAP 12; BUN 12 mg/dL (8-22); CALCIUM 9.7 mg/dL (8.8-10.2); CHLORIDE 99 mmol/L (98-107); COSMO 275; SODIUM 138 mmol/L (136-145); TCO2 27 mmol/L (25-35)
[2017-04-01 08:07] LABS: INR 1.13
--- NOTE | 2017-04-01 08:11 | PROGRESS NOTE ---
DATE: 04/01/2017 PRESENT ILLNESS: The patient has a streptococcal and Moraxella bacteremia with an associated pneumonia and sinusitis. MEDICATIONS: This is the 9th day of treatment with Rocephin since the patient's blood cultures have been sterile. PHYSICAL EXAMINATION: Vital Signs: Temperature is 98.1 degrees, pulse 78, respirations 20, blood pressure 129/76. General: This is a chronically ill-appearing, middle-aged male. He is in no acute distress. He does not have any new complaints today and would like to go home. Lungs: Clear to auscultation. Cardiovascular: Regular heart rate. Abdomen: Soft and nontender. Head, Eyes, Ears, Nose, and Throat: There is no sinus tenderness. No drainage from his nose or ears. LAB AND X-RAY: CBC today shows a white count of 4380, hemoglobin 11.9, and platelet count 464,000. Creatinine 0.5. GFR is greater than 60. There is no new radiographic study. ASSESSMENT AND PLAN: Patient has bacteremia, pneumonia, and sinusitis. His latest x-rays of his lungs showed that pneumonia has resolved. The x-ray of the sinuses shows that the patient's sinusitis has cleared as well. Also, the patient has had 2 blood cultures which were sterile drawn after the patient was started on antibiotics. My plan right now is that I think the patient can be discharged. I have produced through the computer a prescription for Ceftin to take for 5 days. COMORBIDITIES: Include alcoholism, seizures, and cigarette smoking. cc: Carlin Gordillo MD
[2017-04-01] MEDS: NICODERM PATCH TD SCH (09:02)
[2017-04-01] MEDS: LACTULOSE PO SCH ×2 (09:02→13:33)
[2017-04-01 12:20] VITALS: BP 106/77
--- NOTE | 2017-04-02 11:58 | DISCHARGE SUMMARY ---
ADMISSION DATE: 03/19/2017 DISCHARGE DATE: 04/01/2017 CONSULTATIONS: 1. Dr. Pierre with Neurology. 2. Dr. Carlin Gordillo with Infectious Disease. 3. Dr. Frey with Gastroenterology. PERTINENT PROCEDURES: 1. Brain MRI showed moderate advanced cerebral white matter, chronic microvascular disease. Study shows no intracranial process. 2. Chest CT showed small bilateral infiltrates in the mid small right middle lobe nodule with questionable nodule in the left lower lobe and right middle lobe bronchiectasis. 3. Mild dilatation of the descending aortic arch. 4. Some mild sinusitis. 5. Brain MRI showed extensive white matter microangiopathy that is stable. No definite acute intracranial pathology. 6. Sinus CT showed significant improvement with near complete resolution of the sinusitis. DISCHARGE DIAGNOSES: 1. Bacteremia secondary to Streptococcus and Moraxella. 2. Pneumonia. 3. Acute sinusitis 4. Alcohol abuse 5. Lung nodules. 6. Seizure disorder 7. Alcohol related dementia. HOSPITAL COURSE: Mr. Jimenez is a 66-year-old, gentleman who was brought from the long-term for seizure. He had a past medical history significant for seizures, multiple visits and admissions, history of alcohol abuse. He had been in long-term for 1 month. He was found by the long-term staff on the floor having a seizure so he was brought to the ED. He did have an episode of vomiting at the long-term. At the initial time of examination, he was confused. He answered no to all questions. Initial chest x-ray showed right-sided infiltrate with the right lung and left base infiltrate. Lab results were within normal limits so he was admitted in for seizure. He was started on Dilantin IV b.i.d. and p.r.n. Ativan as well as watched him for alcohol withdrawal and started on IV antibiotics for aspiration pneumonia. Brain MRI was also completed and showed moderately advanced cerebral white matter, chronic microvascular disease, sinusitis and no acute intracranial process. Chest CT showed small bilateral infiltrates emphysema with small right middle lobe nodule with questionable nodule on the left lower lobe, right middle lobe, bronchial stasis, mild dilatation of the distending aortic arch. His blood cultures were showing gram- positive cocci. Dr. Carlin Gordillo was brought on board. He was noted to be growing Moraxella and Streptococcus as well as having acute sinusitis and pneumonia. His antibiotics were changed to Rocephin. He was given Flonase for sinusitis as well. On 03/24/[address] Frey was walking down the [place]. He was noted to be face down half in the bed and half slumped over on the floor unresponsive. The patient was breathing on his own. However, his mental status was altered. He was incontinent of urine. His airway was suction. His blood pressure was 155/69, his pulse rate was 127. His respirations were 24-26. His oxygen saturation on room air was 98%. CAT call was made and the patient was transported to the ICU. Tom Frey ordered oral lactulose to help improve his mental status and ryley a Dilantin level. He was returned back to baseline the next day and continued on lactulose t.i.d. He was able to move out of the ICU. He is back to his baseline mental status. His latest chest x-ray of his lungs showed his pneumonia has resolved. The chest x-ray of the sinuses show his sinusitis has cleared as well. His blood cultures are now sterile. Infectious Disease feels that he can be discharged. He will continue on 5 more days of Ceftin. VITAL SIGNS: Temperature 98.1 degrees, heart rate 78, respirations 20, blood pressure 129/76, O2 is 99% on room air. DISCHARGE DIET: Healthy heart. DISCHARGE MEDICATIONS: 1. Ceftin 500 mg p.o. q.12 hours. 2. Keppra 500 mg p.o. b.i.d. FOLLOWUP: Mr. Jimenez is being discharged home. He will continue to follow up with Dr. Pierre. He will also need to follow up with a yoga instructor to follow his nodules that were found on his CT. He can return to the ED for any worsening of symptoms. He will need to continue with abstinence of alcohol. TIME SPENT: Discharge time was greater than 40 minutes. Dictated by JUDITH Chong for Sparkle Flowers MD cc: Sparkle Flowers MD [facility]ITALDiana
== END 2017-04-01 14:08 | disposition home or self-care (01) ==
LOC: ED 20:37 → 3N 03-19 02:45 → SUATTDRO 03-19 02:45 → 3N 03-19 05:16 → ICU 03-24 17:56 → 4N 03-27 18:49
PROVIDERS: ATTEND Internal Medicine

== ENCOUNTER 2018-07-30 04:51 | Inpatient (IN) ==
[2018-07-30 05:36] LABS: BE -0.4 mmoll (-3.0-3.0); BLOOD TYPE ARTERIAL; HCO3-(ACT) 24.4 mmoll (20.0-26.0); METHB 1.3 % (0.0-1.5); O2(CT) 17.1 mL/dL (15.0-23.0); O2HB 90.5 % (95.0-99.0); PCO2(98.6) 42 mmHg (35-45); PO2(98.6) 80 mmHg (60-100); SAMPLE BLOOD; THB 13.4 g/dL (11.5-17.4); pH(98.6) 7.38 (7.35-7.45)
[2018-07-30 05:38] LABS: ALLEN TEST YES; MODALITY ROOM AIR
[2018-07-30 06:30] LABS: INFLUENZA A NEGATIVE (NEGATIVE); INFLUENZA B NEGATIVE (NEGATIVE)
--- NOTE | 2018-07-30 06:34 | EKG Report ---
Test Performed on : 07/30/2018 06:27:48 AM Test Reason : WEAK Blood Pressure : / mmHG Vent. Rate : 097 BPM Atrial Rate : 097 BPM P-R Int : 182 ms QRS Dur : 086 ms QT Int : 336 ms P-R-T Axes : 063 059 051 degrees QTc Int : 426 ms Normal sinus rhythm. Possible Left atrial enlargement Left ventricular hypertrophy Abnormal ECG When compared with ECG of 30-JUL-2018 06:27, (Unconfirmed) No significant change was found Unconfirmed Result
[2018-07-30 06:53] LABS: ACETONE SERUM NEGATIVE (NEGATIVE)
--- NOTE | 2018-07-30 06:55 | Diag Imaging Result Doc PS360 ---
CT HEAD W/O CONTRAST - 07/30/2018 INDICATION: ALTERED MENTAL,DIZZY COMPARISON: 04/20/2018 FINDINGS: There is stable moderately advanced periventricular white matter chronic microvascular disease. No intracranial mass or hemorrhage. The skull is intact. There is some faint ethmoid sinusitis. IMPRESSION: No acute process. No change from prior. This exam was performed using automated exposure control, adjustment of mA or kV according to patient size, and/or use of iterative reconstruction technique Electronically signed by Nguyễn Calloway 07/30/2018 6:53 AM
[2018-07-30 07:02] LABS: AGAP 12; ALBUMIN 4.9 g/dL (3.5-5.0); ALKALINE PHOSPHATASE 65 U/L (32-122); BUN 11 mg/dL (8-22); CHLORIDE 103 mmol/L (98-107); COSMO 283; CREATININE 0.7 mg/dL (0.7-1.2); ESTIMATED GFR > 60; GLUCOSE 79 mg/dL (70-104); GOT 20 U/L (10-34); GPT 10 U/L (10-44); POTASSIUM 4.5 mmol/L (3.5-5.1); SODIUM 143 mmol/L (136-145); TCO2 27 mmol/L (25-35); TOTAL PROTEIN 8.6 g/dL (6.3-8.3)
--- NOTE | 2018-07-30 07:15 | PROVIDER DOCUMENTATION ---
HPI-General Adult - General Chief Complaint: Dizziness Stated Complaint: seizure like activity Time Seen by Provider: 07/30/18 05:10 Source: patient, EMS Allergies/Adverse Reactions: Patient Allergies Allergy/AdvReac Type Severity Reaction Status Date / Time No Known Allergies Allergy Verified 05/19/18 09:40 Home Medications: Home Medication List Medication Instructions Recorded Confirmed Last Taken Type Levetiracetam [Keppra] 500 mg PO BID 30 Days #60 tab 05/11/18 05/19/18 Unknown Rx Levetiracetam [Keppra] 500 mg PO BID #30 tab 05/19/18 Unknown Rx - History of Present Illness -Gen Adult Nature of Presenting Problems: PT REPORTS HE DID NOT FEEL WELL LAST NIGHT AND THIS MORING SO WALKED TO [facility] [place] CALL 911 FOR TRANSPORT. POOR HISTORIAN, LETHARGIC REPORTING, SPEECH AND THOUGHT CONTENT. DRINKS 1 BEER/DAY. SMOKES 1 1/2 PPD. DENIES SPECIFIC PAIN, OCCASIONAL COUGH. HAS CHILLS , DENIES FEVER Review of Systems - Adult - REVIEW OF SYSTEMS - ADULT Constitutional: reports: no symptoms reported, chills, fatique. denies: fever Eyes: reports: no symptoms reported Ears, Nose, Mouth & Throat: reports: no symptoms reported Cardiovascular: reports: no symptoms reported Respiratory: reports: no symptoms reported Gastrointestinal: reports: no symptoms reported Genitourinary: reports: no symptoms reported Musculoskeletal: reports: no symptoms reported Integumentary: reports: no symptoms reported Neurological: reports: no symptoms reported Psychiatric: reports: no symptoms reported Endocrine: reports: no symptoms reported Hematologic/Lymphatic: reports: no symptoms reported Allergic/Immunologic: reports: no symptoms reported All Other Systems: Reviewed and Negative Past History - Adult - PAST MEDICAL HISTORY-ADULT Review of Records: reports: Old Records Reviewed, Nursing Assessment Review, Medications Reviewed, Social history reviewed & non-contributory. Major Childhood Illnesses: reports: denies history Cardiovascular: reports: denies history Respiratory: reports: denies history Gastrointestinal: reports: denies history Obstetrical/Gynecological: reports: denies history Genitourinary: reports: denies history Musculoskeletal: reports: denies history Neurological: reports: cognitive dysfunction, CVA, Seizures/Epilepsy Psychiatric: reports: other (hallucinations) Endocrine/Immune: reports: denies history Other Conditions: reports: other (alcohol abuse) - PRIOR SURGERIES/PROCEDURES Surgical/Procedure History: reports: reviewed, not pertinent - PRIOR HOSPITALIZATIONS Prior Hospitalizations: reports: none - IMMUNIZATION STATUS Childhood Immunizations: See Nurse Assessment Flu Vaccine: See Nurse Assessment - FAMILY HISTORY Family History: reviewed, not pertinent Physical Exam-General - PHYSICAL EXAM-ADULT Initial Vital Signs Reviewed: Yes - CONSTITUTIONAL General Appearance: no apparent distress, cachetic, slow to respond - EYES Eyes: PERRL/EOMI, pink conjunctivae - HEAD, EARS, NOSE, MOUTH & THROAT HENMT: normocephalic/atraumatic, moist mucous membranes - NECK Neck: full range of motion, supple - RESPIRATORY Respiratory: lungs clear, normal breath sounds, no respiratory distress, no accessory muscle use - CARDIOVASCULAR Cardiovascular: regular rate, rhythm, no edema, no gallop, no JVD - GASTROINTESTINAL (ABDOMEN) Abdominal Exam: non tender, soft, no organomegaly - MUSCULOSKELETAL Extremity: normal range of motion, non-tender, normal gait, normal inspection, no pedal edema - SKIN Integumentary: normal color, normal turgor, warm/dry - NEUROLOGIC Neurologic: department supervisor II-XII nml as tested, grossly normal, no motor/sensory deficits . negative: facial droop, focal weakness, motor weakness - PSYCHIATRIC Psych/Mental Status: normal mood/affect, disheveled. negative: paranoid Progress - PLAN OF CARE/RESULTS Progress/Plan/Lab Results: Vital Signs - 8 hr 07/30/18 04:56 Temperature 97.5 F L Pulse Rate 103 H Respiratory Rate 18 Blood Pressure 115/89 O2 Sat by Pulse Oximetry 97 Laboratory Results - last 24 hr 07/30/18 07/30/18 07/30/18 05:25 05:53 06:39 Specimen Type ARTERIAL Sample Site R RADIAL pH 7.38 pCO2 42 pO2 80 HCO3 24.4 Base Excess -0.4 Oxyhemoglobin 90.5 L ABG O2 Sat (Calculated) 17.1 ABG O2 Saturation 98.0 ABG Carboxyhemoglobin 6.30 H* ABG Methemoglobin 1.3 Enrike Test YES A-a O2 Difference 17.0 Total Hemoglobin 13.4 Lactate 2.40 H Blood Gas Modality ROOM AIR FiO2 % 21.0 Sodium 143 Potassium 4.5 Chloride 103 Carbon Dioxide 27 Anion Gap 12 BUN 11 Creatinine 0.7 Estimated GFR/1.73 m2 > 60 BUN/Creatinine Ratio 16 Glucose 79 Calculated Osmolality 283 Calcium 10.0 Total Bilirubin 0.20 AST 20 ALT 10 Alkaline Phosphatase 65 Total Protein 8.6 H Albumin 4.9 Globulin 4.0 Albumin/Globulin Ratio 1.0 Acetone Level NEGATIVE Influenza A (Rapid) NEGATIVE Influenza B (Rapid) NEGATIVE Orders Category Date Time Status Cardiac Monitoring DIRECTED Care 07/30/18 05:13 Active Saline Loc NOW Care 07/30/18 05:13 Active CHEST-PORTABLE [RAD] Stat Exams 07/30/18 05:[address] HEAD W/O CONTRAST [CT] Stat Exams 07/30/18 05:18 Completed ABG [RESP] Routine Lab 07/30/18 05:25 Completed ACETONE SERUM [CHEM] Stat Lab 07/30/18 06:39 Completed AMMONIA [CHEM] Stat Lab 07/30/18 05:15 Uncollected CBC WITH ELECTRONIC DIFF [HEME] Stat Lab 07/30/18 05:15 Uncollected COMPREHENSIVE METABOLIC PANEL [CHEM] Stat Lab 07/30/18 06:[address] Stat Lab 07/30/18 05:53 Completed LACTATE, PLASMA [CHEM] Stat Lab 07/30/18 05:16 Uncollected MAGNESIUM [CHEM] Stat Lab 07/30/18 06:39 Received TROPONIN T Stat Lab 07/30/18 05:[address] W/POSS RFLX CULT [URINALYSIS] Stat Lab 07/30/18 05:17 Uncollected URINE DRUG SCREEN PL Stat Lab 07/30/18 05:17 Uncollected EKG [EKG] Stat Ther 07/30/18 05:14 Draft Result Diagrams: 07/30/18 06:39 - EKG 1 Time of EKG reading by physician:: 06:27 EKG Interpretation (*Must complete 3 of following elements*): Abnormal Rate: 97 [place]: normal QRS: LV[facility] GA Interval: normal ST Wave: non-specific ST changes - XRAY 1 XRAY Study: Chest Comparison with other Films: no changes (COPD, NO INFILTRATES) - CT/MRI 1 CT Study: Head Impression: See EMR Report Comparison with other Films: no changes Departure - Departure Date of Disposition Decision: 07/30/18 Time of Disposition Decision: 07:31 DIAGNOSIS: Weak, Dizzy, Alcohol dependence, Seizure, Gait disturbance, Lactic acid acidosis Disposition: ADMITTED INPATIENT 09 Certified Medical Emergency: Emergent Condition: Stable Referrals and Follow-Ups: None,PCP [Primary Care Provider] - - Critical Care Note This patient required my direct & personal management of CC.: No Attestation - Physician/ TRISTAN Attestation Patient care was provided by Advanced Practice Provider:: No The physician spent face to face time with patient:: Yes Advanced Practice Provider documentation review:: Supervising physician onsite and consulted in the evaluation and care of this patient. The physician did have a face to face encounter with the patient.
[2018-07-30 07:20] LABS: BASO# 0.04 X1000 (0.0-0.2); BASO% 0.5 % (0.0-0.8); EOS# 0.09 X1000 (0.0-0.7); EOS% 1.2 % (0.0-10.0); HEMATOCRIT 39.7 % (42.0-52.0); HEMOGLOBIN 13.3 g/dL (14.0-18.0); IMM GRAN# 0.01 X1000 (0.0-0.04); IMM GRAN% 0.1 % (0.0-0.5); LYMPH# 1.85 X1000 (1.2-3.4); LYMPH% 24.3 % (20.5-51.1); MCH 27.6 PG (27-31); MCHC 33.5 g/dL (33-37); MCV 82.4 FL (81-99); MONO# 1.19 X1000 (0.11-0.59); MONO% 15.6 % (1.7-9.3); MPV 10.6 FL (7.4-10.4); NEUT# 4.43 X1000 (1.4-6.5); NEUT% 58.3 % (42.2-75.2); PLT 266 X1000 (130-400); RBC 4.82 XMIL (4.7-6.1); RDW 14.9 % (11.5-14.5); WBC 7.61 X1000 (4.8-10.8)
[2018-07-30] MEDS ORDERED: M.V.I.-12 10 ML, FOLIC ACID 1 MG, MAGNESIUM SULFATE 1 GM, THIAMINE 100 MG in NS 1,000 ML IV ONE (07:24)
--- NOTE | 2018-07-30 07:32 | Diag Imaging Result Doc PS360 ---
EXAM: CHEST-PORTABLE INDICATION: WEAK TECHNIQUE: One view COMPARISON: 05/07/2018 FINDINGS: There appears to be stable mild scarring at the right costophrenic angle. The lungs are clear, otherwise. There is no discrete pleural fluid collection or pneumothorax. The cardiomediastinal silhouette and central vasculature are grossly unremarkable. IMPRESSION: Stable chest with no definite acute pathology. Electronically signed by Binh Jackson 07/30/2018 7:30 AM
[2018-07-30 08:28] LABS: URINE RBC <10 /HPF (<10); URINE SOURCE CLEAN CATCH
[2018-07-30 08:29] LABS: BILIRUBIN URINE NEGATIVE (NEGATIVE); BLOOD URINE NEGATIVE (NEGATIVE); CLARITY CLEAR (CLEAR); COLOR YELLOW; GLUCOSE URINE NEGATIVE (NEGATIVE); KETONE URINE NEGATIVE (NEGATIVE); LEUKOCYTES URINE NEGATIVE (NEGATIVE); NITRITE URINE NEGATIVE (NEGATIVE); PROTEIN URINE NEGATIVE (NEGATIVE); UR AMPHETAMINES QUAL NONE DETECTED (NONE DETECT); UR BARBITUATES QUAL NONE DETECTED (NONE DETECT); UR BENZODIAZEPIN QUAL NONE DETECTED (NONE DETECT); UR CANNABINOIDS QUAL NONE DETECTED (NONE DETECT); UR COCAINE QUAL NONE DETECTED (NONE DETECT); UR METHADONE QUAL NONE DETECTED (NONE DETECT); UR METHAMPHETAMINE QUAL NONE DETECTED (NONE DETECT); UR OPIATES QUAL NONE DETECTED (NONE DETECT); UR OXYCODONE QUAL NONE DETECTED (NONE DETECT); UR PCP QUAL NONE DETECTED (NONE DETECT); UR PROPOXYPHENE QUAL NONE DETECTED (NONE DETECT); UR TCA QUAL NONE DETECTED (NONE DETECT); UROBILINOGEN URINE NORMAL
[2018-07-30] MEDS ORDERED: ATIVAN ONE (08:47)
[2018-07-30] MEDS ORDERED: ATIVAN IV ONE (08:53)
[2018-07-30] MEDS ORDERED: NS 1,000 ML IV ONE (09:23)
[2018-07-30] MEDS ORDERED: TYLENOL PO PRN (09:23)
[2018-07-30] MEDS ORDERED: ATIVAN IV PRN (11:39)
[2018-07-30] MEDS: KEPPRA 750 MG in NS 100 ML IV SCH ×2 (11:48→23:08)
--- NOTE | 2018-07-30 12:07 | HISTORY AND PHYSICAL ---
PRIMARY CARE PHYSICIAN: None. CHIEF COMPLAINT: "Not feeling good and dizziness". HISTORY OF PRESENTING ILLNESS: This is a 68-year-old -[place] male who presented to [facility] ER via EMS. Apparently, according to ER records, he stated he did not feel well last night and, so, this morning he got up and walked to a gas station and called 911 for transport. He is a poor historian and lethargic. When he arrived, he told them that he drinks beer daily and smokes 1-1/2 packs of cigarettes a day. Then, he had a witnessed seizure by staff. His workup in the emergency room showed a plasma lactate of 3.0. His acetone level was negative. His urine drug screen was negative. Influenza A and B were negative. CT of the head showed no acute process or change from prior. Chest x-ray was stable. The patient is unable to give any information at this time as he is lethargic and postictal, so he will be admitted to the Intensive Care Unit for further evaluation and treatment. PAST MEDICAL HISTORY: Seizure, ETOH abuse, and a CVA. PAST SURGICAL HISTORY: Unknown. FAMILY HISTORY: Unknown. SOCIAL HISTORY: He currently lives alone. He smokes a pack and a half of cigarettes a day; unknown duration of time. Drinks beer daily but unknown amount and denies any illicit drug use. ALLERGIES: He has no known drug allergies. HOME MEDICATIONS: We need to obtain a current list and restart as appropriate. We will place an order for nursing to update and confirm home medications. LABORATORY DATA: White blood cell count of 7.61, hemoglobin 13.3, hematocrit 39.7, platelets 266,000. ABG showed a pH of 7.38, pCO2 of 42, PO2 of 80, bicarb 24.4, and this was on room air. Sodium of 143, potassium 4.5, chloride 103. CO2 of 27, BUN of 11, creatinine 0.7, glucose 79, magnesium of 2.1. Plasma lactate is 3. Ammonia of 36. Urinalysis was negative. Urine drug screen showed none detected. Acetone level was negative. Influenza A and B were both negative. Chest x-ray showed a stable chest with no definite acute pathology. CT of the head showed no acute process or change from prior. REVIEW OF SYSTEMS: Unable to obtain from patient due to lethargy and being postictal. PHYSICAL EXAMINATION: VITAL SIGNS: On arrival, he had a temperature of 97.5 degrees, pulse 103, respirations 18, blood pressure 115/89, saturating 97% on room air. GENERAL: This is a 68-year-old -[place] male who is lying in the bed and unable to answer questions at this time. HEENT: Normocephalic, atraumatic. Normal ENT inspection. Oropharynx and nares are clear. EYES: Pupils are equal, round, reactive to light and accommodation. Extraocular movements are intact. NECK: Normal inspection. Normal range of motion. LUNGS: Clear to auscultation bilaterally with equal lung expansion and chest wall movement. HEART: With regular rate and rhythm. No murmurs, rubs, or gallops. ABDOMEN: Soft, nontender, nondistended. Bowel sounds are present x4 quadrants. MUSCULOSKELETAL: Unable to assess strength at this time. NEUROLOGICAL: Unable to perform neurological exam at this time. ASSESSMENT: 1. Ethanol abuse. 2. Seizure, most likely secondary to ETOH withdrawal. 3. Tobacco abuse. PLAN: He will be admitted to the Intensive Care Unit. He is holding in the ER for a bed and placed on telemetry, regular diet. We are checking a blood alcohol level. We have given him Keppra 750 mg IV q.12, normal saline at 125 mL an hour. We will give him Ativan 1 mg IV q.4 p.r.n. We are going to hold off on the Librium at this time as he is unable to swallow tablets or pills at this time when we can further address exactly how much alcohol he is drinking daily and if he has been taking any of his antiseizure medications. We are going to give him a banana bag of fluids daily and further orders after seen by attending. Dictated by JUDITH Dickey for Aguilar Wilson MD cc: JUDITH Dickey MD
--- NOTE | 2018-07-30 12:30 | HISTORY AND PHYSICAL ---
The patient came in. He reports a seizure. It is unclear if he had a seizure before coming in. He did not report that to the ER staff but he has had a seizure since he has been here. He did not feel good. He drinks, he says one beer a day. He has no alcohol in his system but we checked the alcohol level later in the morning. He came in this morning around 6:30. He has had a generalized tonic-colonic seizure here. He is awake now, lethargic but definitely awake. Unclear if he is going through any withdrawal but overall, he seems improved. We will observe him for alcohol withdrawal, control his seizures. I am going to increase his Keppra. His neurologic exam and physical exam are otherwise unremarkable. Labs are really unremarkable. His lactate is a bit elevated but, again, he just had a seizure earlier today so it may be related to that. We will continue to follow very closely. This is a [id number] encounter note with JUDITH Dickey. We will observe in the ICU at least for 24 hours until he stabilizes. cc: Aguilar Wilson MD
[2018-07-31 06:18] LABS: BASO# 0.02 X1000 (0.0-0.2); BASO% 0.3 % (0.0-0.8); EOS# 0.14 X1000 (0.0-0.7); HEMATOCRIT 36.5 % (42.0-52.0); IMM GRAN# 0.01 X1000 (0.0-0.04); IMM GRAN% 0.1 % (0.0-0.5); LYMPH# 1.83 X1000 (1.2-3.4); MCH 26.7 PG (27-31); MCHC 32.9 g/dL (33-37); MCV 81.3 FL (81-99); MONO# 0.79 X1000 (0.11-0.59); MONO% 11.2 % (1.7-9.3); MPV 10.8 FL (7.4-10.4); NEUT# 4.26 X1000 (1.4-6.5); NEUT% 60.4 % (42.2-75.2); PLT 225 X1000 (130-400); RBC 4.49 XMIL (4.7-6.1); RDW 14.8 % (11.5-14.5); WBC 7.05 X1000 (4.8-10.8)
[2018-07-31 06:33] LABS: AGAP 12; BUN 9 mg/dL (8-22); CHLORIDE 103 mmol/L (98-107); COSMO 279; CREATININE 0.6 mg/dL (0.7-1.2); ESTIMATED GFR > 60; GLUCOSE 76 mg/dL (70-104); MAGNESIUM 2.1 mg/dL (1.5-2.7); POTASSIUM 3.2 mmol/L (3.5-5.1); SODIUM 141 mmol/L (136-145); TCO2 26 mmol/L (25-35)
[2018-07-31] MEDS ORDERED: M.V.I.-12 10 ML, FOLIC ACID 1 MG, MAGNESIUM SULFATE 1 GM, THIAMINE 100 MG in NS 1,000 ML IV SCH (09:00)
--- NOTE | 2018-07-31 10:35 | PROGRESS NOTE ---
DATE: 07/31/2018 SUBJECTIVE: This morning Mr. Jimenez refers to be doing fairly okay. He denies any more dizziness or any seizure activity. He has been tolerating his meals, and he was requesting when he will be discharged. OBJECTIVE: Vital Signs: Blood pressure 125/75, pulses 98, respirations 17, and temperature 97.5 degrees. The patient was saturating 97% on room air. General: Mr. Jimenez is a 68-year-old gentleman. He is in bed in no distress. Mucosa is pink and moist. Anicteric. Acyanotic. Neck: Supple. Chest: Good air entry bilaterally. There was no crepitations. No rhonchi. There was not any accessory muscle use. Cardiovascular: Regular rate and rhythm. No murmurs. No rubs. No gallops. Abdomen: Soft, nontender. Bowel sounds present. Extremities: No pedal edema. Distal pulses present. COLOR FINISHER: Patient is awake, alert, and oriented. Follows some basic commands. He seems to have some underlying memory gaps. LABORATORY DATA: WBC is 7.05, hemoglobin 12, platelet count of 225,000. Chemistry is also reviewed. Potassium is 3.2. Rest of the chemistry is completely normal. ASSESSMENT: 1. Ethanol abuse suspected seizure episode likely due to ethanol withdrawal. 2. Tobacco abuse. 3. 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 4. The clinical volume depletion on presentation improved. 5. In general, we are going to switch the patient's IV medications to oral. We will get him transferred from the ICU to regular medical floor. We will get him up to sit up, and get Physical Therapy to walk with him, and hopefully plan his discharge for later today or tomorrow morning. cc: Senthil John MD
[2018-07-31] MEDS: KEPPRA PO SCH ×2 (11:11→22:11)
[2018-07-31] MEDS: PRILOSEC PO SCH (22:11)
[2018-08-01 07:47] VITALS: BP 114/75
[2018-08-01] MEDS: PRILOSEC PO SCH (08:05)
[2018-08-01] MEDS: KEPPRA PO SCH (08:05)
[2018-08-01 08:12] LABS: HEMOGLOBIN 13.1 g/dL (14.0-18.0); MCH 26.9 PG (27-31); MCHC 32.8 g/dL (33-37); MCV 82.1 FL (81-99); MPV 10.4 FL (7.4-10.4); RBC 4.87 XMIL (4.7-6.1); RDW 14.9 % (11.5-14.5); WBC 4.59 X1000 (4.8-10.8)
[2018-08-01 09:00] LABS: AGAP 13; ALBUMIN 4.4 g/dL (3.5-5.0); ALKALINE PHOSPHATASE 60 U/L (32-122); BUN 7 mg/dL (8-22); CALCIUM 9.6 mg/dL (8.8-10.2); CHLORIDE 103 mmol/L (98-107); COSMO 279; CREATININE 0.7 mg/dL (0.7-1.2); ESTIMATED GFR > 60; GLUCOSE 96 mg/dL (70-104); GOT 22 U/L (10-34); GPT 9 U/L (10-44); POTASSIUM 4.2 mmol/L (3.5-5.1); SODIUM 141 mmol/L (136-145); TCO2 26 mmol/L (25-35); TOTAL PROTEIN 7.4 g/dL (6.3-8.3)
[2018-08-01] MEDS ORDERED: THERA M PLUS PO SCH (09:00)
--- NOTE | 2018-08-01 15:05 | EEG REPORT ---
DATE: 07/30/2018 COMMENT: This is a digitally recorded EEG on a 68-year-old patient with reported witnessed seizure, not certain about prior seizure history, reported question of ethanol withdrawal. FINDINGS: Beta rhythm is occasionally prominent across the frontal and central regions throughout the record. During waking, poorly sustained 9 Hz posterior rhythm is present bilaterally with uncertain reactivity to eye opening. There is polymorphic and rhythmic theta across the frontal and central regions, sometimes present abundantly while awake. Muscle contraction and movement artifacts were present but did not hinder interpretation. Drowsing occurred briefly with appearance of more generalized slowing and attenuation of the posterior rhythm. Stage 2 sleep was not recorded. Photic stimulation did not significantly alter the record. Hyperventilation was not done. No definite epileptiform discharge was identified. INTERPRETATION: Normal EEG. CORRELATION: The background slowing while awake is considered to be just within limit of normal. The absence of epileptiform discharges on a single EEG does not exclude a clinical diagnosis of seizures, but there is nothing on this record to suggest the presence of a chronic seizure disorder. cc: MD Aguilar Ayala III, MD
--- NOTE | 2018-08-01 21:12 | DISCHARGE SUMMARY ---
ADMISSION DATE: 07/30/2018 DISCHARGE DATE: 08/01/2018 DISCHARGE DIAGNOSIS: 1. Seizure disorder. 2. Ethanol abuse. HOSPITAL COURSE: Mr. Jimenez is a 68-year-old male who presented to the [facility] Emergency Department here at [facility] with complaint of having dizziness and not feeling well. He did have a seizure episode and therefore, he was admitted to the intensive care unit for further care. He received IV Keppra and was also given IV Ativan on as-needed basis. He remained in the ICU for a day and was transferred to regular floor yesterday. His condition has been stable and therefore, we are going to let him go home today. DISCHARGE MEDICATIONS: Keppra 500 mg orally twice daily. FOLLOWUP: He will follow up with his PCP in 1 to 2 weeks and follow up with Dr. Pierre from Neurology service in 2 to 4 weeks. CONDITION: Stable. DISPOSITION: Home. cc: Yanci Lim MD
== END 2018-08-01 11:23 | disposition home or self-care (01) | DRG 101 ==
LOC: P.ED 04:51 → SUATTDRO 08:46 → P.MEDSURG 08:46 → P.EDIPHOLD 10:32 → P.ICU 20:19 → P.MEDSURG 07-31 20:31
PROVIDERS: ATTEND Internal Medicine
CPT/HCPCS: 70450; 71010; 71045; 80048; 80053; 80104; 80301; 80305; 80307; 80320; 81001; 82009; 82055; 82140; 82805; 83605; 83735; 84484; 85025; 85027; 87275; 87276; 87804; 93005; 94761; 95816; 96361; 96365; 96367; 96375; 99285; A9270; G0431; G0434; G0477; G0480; G6040; J1953; J2060; J3411; J3475; J7030

== ENCOUNTER 2019-02-14 00:30 | Inpatient (IN) ==
[2019-02-14 02:02] LABS: BASO# 0.06 X1000 (0.0-0.2); BASO% 1.4 % (0.0-0.8); EOS# 0.14 X1000 (0.0-0.7); EOS% 3.2 % (0.0-10.0); HEMATOCRIT 39.6 % (42.0-52.0); HEMOGLOBIN 13.1 g/dL (14.0-18.0); IMM GRAN# 0.01 X1000 (0.0-0.04); IMM GRAN% 0.2 % (0.0-0.5); LYMPH# 1.66 X1000 (1.2-3.4); LYMPH% 37.6 % (20.5-51.1); MCH 27.5 PG (27-31); MCHC 33.1 g/dL (33-37); MONO# 0.47 X1000 (0.11-0.59); MONO% 10.7 % (1.7-9.3); MPV 10.6 FL (7.4-10.4); NEUT# 2.07 X1000 (1.4-6.5); NEUT% 46.9 % (42.2-75.2); PLT 288 X1000 (130-400); RBC 4.77 XMIL (4.7-6.1); RDW 16.8 % (11.5-14.5); WBC 4.41 X1000 (4.8-10.8)
[2019-02-14 02:38] LABS: ACETAMINOPHEN < 1.2 ug/mL (10-30); AGAP 20; ALBUMIN 4.7 g/dL (3.5-5.0); ALKALINE PHOSPHATASE 66 U/L (32-122); BUN 9 mg/dL (8-22); CHLORIDE 104 mmol/L (98-107); COSMO 286; CREATININE 0.7 mg/dL (0.7-1.2); ESTIMATED GFR > 60; GLUCOSE 114 mg/dL (70-104); GOT 18 U/L (10-34); GPT 8 U/L (10-44); SALICYLATES < 3.00 mg/dL (3-10); SODIUM 144 mmol/L (136-145); TCO2 20 mmol/L (25-35); TOTAL PROTEIN 7.6 g/dL (6.3-8.3)
[2019-02-14] MEDS ORDERED: NS 1,000 ML IV ONE (03:03)
--- NOTE | 2019-02-14 03:05 | PROVIDER DOCUMENTATION ---
This chart was entered by Costa Lyons Scribe, acting as scribe for Georgette Ramirez MD. 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 Patient has a known history of seizures. EMS reported that family called 911 and wanted the patient to be evaluated. No family present in the ED. Location of Pain/Injury: reports: none Quality of Pain: reports: none Severity: reports: mild Onset/Duration: reports: just prior to arrival Timing: reports: gone now Associated Symptoms: reports: denies symptoms <Georgette Ramirez - Last Filed: 02/14/19 22:13> - General Chief Complaint: Seizure Stated Complaint: seizure Time Seen by Provider: 02/14/19 00:42 Allergies/Adverse Reactions: Patient Allergies Allergy/AdvReac Type Severity Reaction Status Date / Time No Known Allergies Allergy Verified 02/14/19 00:34 Home Medications: Home Medication List Medication Instructions Recorded Confirmed Last Taken Type Unobtainable [Home Meds 02/14/19 02/14/19 Unknown History Unobtainable] Review of Systems - Adult - REVIEW OF SYSTEMS - ADULT Constitutional: reports: no symptoms reported Eyes: reports: no symptoms reported Ears, Nose, Mouth & Throat: reports: no symptoms reported Cardiovascular: denies: chest pain, palpitations Respiratory: denies: shortness of breath, wheezing Gastrointestinal: denies: nausea, vomiting Genitourinary: reports: no symptoms reported Musculoskeletal: reports: no symptoms reported Integumentary: reports: no symptoms reported Neurological: reports: seizure. denies: dizziness/vertigo, headache/migraines Psychiatric: reports: no symptoms reported Endocrine: reports: no symptoms reported Hematologic/Lymphatic: reports: no symptoms reported Allergic/Immunologic: reports: no symptoms reported All Other Systems: Reviewed and Negative <Georgette Ramirez - Last Filed: 02/14/19 22:13> Past History - Adult - PAST MEDICAL HISTORY-ADULT Review of Records: reports: Nursing Assessment Review, Medications Reviewed Neurological: reports: Seizures/Epilepsy - IMMUNIZATION STATUS Childhood Immunizations: See Nurse Assessment Flu Vaccine: See Nurse Assessment <Georgette Ramirez - Last Filed: 02/14/19 22:13> Physical Exam-General - PHYSICAL EXAM-ADULT Initial Vital Signs Reviewed: Yes - CONSTITUTIONAL General Appearance: alert, no apparent distress - NECK Neck: full range of motion, normal inspection - RESPIRATORY Respiratory: lungs clear, normal breath sounds, no respiratory distress, no accessory muscle use - CARDIOVASCULAR Cardiovascular: normal peripheral pulses, regular rate, rhythm - GASTROINTESTINAL (ABDOMEN) Abdominal Exam: normal bowel sounds, non tender, soft - MUSCULOSKELETAL Extremity: normal range of motion, normal capillary refill - SKIN Integumentary: normal color, warm/dry <Georgette Ramirez - Last Filed: 02/14/19 22:13> Progress - PLAN OF CARE/RESULTS Progress/Plan/Lab Results: Vital Signs - 8 hr 02/14/19 00:32 02/14/19 07:32 Temperature 97.7 F 98 F Pulse Rate 108 H 91 H Respiratory Rate 16 24 Blood Pressure 121/76 129/77 O2 Sat by Pulse Oximetry 93 L 96 Laboratory Results - last 24 hr 02/14/19 02/14/19 02/14/19 00:55 00:55 02:06 WBC 4.41 L RBC 4.77 Hgb 13.1 L Hct 39.6 L MCV 83.0 MCH 27.5 MCHC 33.1 RDW Std Deviation 16.8 H Plt Count 288 MPV 10.6 H Immature Gran % (Auto) 0.2 Neut % (Auto) 46.9 Lymph % (Auto) 37.6 Robeson % (Auto) 10.7 H Eos % (Auto) 3.2 Baso % (Auto) 1.4 H Immature Gran # (Auto) 0.01 Neut # (Auto) 2.07 Lymph # (Auto) 1.66 Robeson # (Auto) 0.47 Eos # (Auto) 0.14 Baso # (Auto) 0.06 Sodium Potassium Chloride Carbon Dioxide Anion Gap BUN Creatinine Estimated GFR/1.73 m2 BUN/Creatinine Ratio Glucose Calculated Osmolality Calcium Total Bilirubin AST ALT Alkaline Phosphatase Troponin T < 0.010 Total Protein Albumin Globulin Albumin/Globulin Ratio Plasma Lactate Urine Source Urine Color Urine Clarity Urine pH Ur Specific [place] Urine Protein Urine Ketones Urine Blood Urine Nitrite Urine Bilirubin Urine Urobilinogen Urine Microscopic RBC Urine WBC Urine Microscopic WBC Ur Epithelial Cells Urine Crystals Urine Bacteria Urine Casts Urine Yeast Urine Glucose Salicylates Urine Opiates Screen Ur Oxycodone Screen Urine Methadone Screen U Propoxyphene Qual Acetaminophen Ur Barbituates Screen Ur Tricyclics Screen Ur Phencyclidine Scrn Ur Amphetamines Screen U Methamphetamines Scrn U Benzodiazepines Scrn Urine Cocaine Screen U Cannabinoids Screen Plasma/Serum Ethyl Alc 35 H 02/14/19 02/14/19 02/14/19 02:06 02:06 03:35 WBC RBC Hgb Hct MCV MCH MCHC RDW Std Deviation Plt Count MPV Immature Gran % (Auto) Neut % (Auto) Lymph % (Auto) Robeson % (Auto) Eos % (Auto) Baso % (Auto) Immature Gran # (Auto) Neut # (Auto) Lymph # (Auto) Robeson # (Auto) Eos # (Auto) Baso # (Auto) Sodium 144 Potassium 4.0 Chloride 104 Carbon Dioxide 20 L Anion Gap 20 BUN 9 Creatinine 0.7 Estimated GFR/1.73 m2 > 60 BUN/Creatinine Ratio 13 Glucose 114 H Calculated Osmolality 286 Calcium 9.0 Total Bilirubin 0.20 AST 18 ALT 8 L Alkaline Phosphatase 66 Troponin T Total Protein 7.6 Albumin 4.7 Globulin 3.0 Albumin/Globulin Ratio 2.0 Plasma Lactate 8.2 H* Urine Source CATH Urine Color YELLOW Urine Clarity CLEAR Urine pH 5.0 Ur Specific [place] 1.020 Urine Protein TRACE A Urine Ketones 1+(Small) A Urine Blood 1+ A Urine Nitrite NEGATIVE Urine Bilirubin NEGATIVE Urine Urobilinogen NORMAL Urine Microscopic RBC <10 Urine WBC NEGATIVE Urine Microscopic WBC <10 Ur Epithelial Cells <10 Urine Crystals NONE SEEN Urine Bacteria 2+ Urine Casts NONE SEEN Urine Yeast NONE SEEN Urine Glucose NEGATIVE Salicylates < 3.00 L Urine Opiates Screen Ur Oxycodone Screen Urine Methadone Screen U Propoxyphene Qual Acetaminophen < 1.2 L Ur Barbituates Screen Ur Tricyclics Screen Ur Phencyclidine Scrn Ur Amphetamines Screen U Methamphetamines Scrn U Benzodiazepines Scrn Urine Cocaine Screen U Cannabinoids Screen Plasma/Serum Ethyl Alc 02/14/19 03:35 WBC RBC Hgb Hct MCV MCH MCHC RDW Std Deviation Plt Count MPV Immature Gran % (Auto) Neut % (Auto) Lymph % (Auto) Robeson % (Auto) Eos % (Auto) Baso % (Auto) Immature Gran # (Auto) Neut # (Auto) Lymph # (Auto) Robeson # (Auto) Eos # (Auto) Baso # (Auto) Sodium Potassium Chloride Carbon Dioxide Anion Gap BUN Creatinine Estimated GFR/1.73 m2 BUN/Creatinine Ratio Glucose Calculated Osmolality Calcium Total Bilirubin AST ALT Alkaline Phosphatase Troponin T Total Protein Albumin Globulin Albumin/Globulin Ratio Plasma Lactate Urine Source Urine Color Urine Clarity Urine pH Ur Specific [place] Urine Protein Urine Ketones Urine Blood Urine Nitrite Urine Bilirubin Urine Urobilinogen Urine Microscopic RBC Urine WBC Urine Microscopic WBC Ur Epithelial Cells Urine Crystals Urine Bacteria Urine Casts Urine Yeast Urine Glucose Salicylates Urine Opiates Screen NONE DETECTED Ur Oxycodone Screen NONE DETECTED Urine Methadone Screen NONE DETECTED U Propoxyphene Qual NONE DETECTED Acetaminophen Ur Barbituates Screen NONE DETECTED Ur Tricyclics Screen NONE DETECTED Ur Phencyclidine Scrn NONE DETECTED Ur Amphetamines Screen NONE DETECTED U Methamphetamines Scrn NONE DETECTED U Benzodiazepines Scrn NONE DETECTED Urine Cocaine Screen NONE DETECTED U Cannabinoids Screen NONE DETECTED Plasma/Serum Ethyl Alc Orders Category Date Time Status Nursing- Obtain EKG ONCE Care 02/14/19 01:[address] HEAD W/O CONTRAST [CT] Stat Exams 02/14/19 01:21 Taken ACETAMINOPHEN [TDM] Stat Lab 02/14/19 02:06 Completed ALCOHOL BLOOD Stat Lab 02/14/19 00:55 Completed CBC WITH ELECTRONIC DIFF [HEME] Stat Lab 02/14/19 00:55 Completed COMPREHENSIVE METABOLIC PANEL [CHEM] Stat Lab 02/14/19 02:06 Completed LACTATE, PLASMA [CHEM] Stat Lab 02/14/19 02:06 Completed SALICYLATES [TDM] Stat Lab 02/14/19 02:06 Completed TROPONIN T Stat Lab 02/14/19 02:[address] W/POSS RFLX CULT [URINALYSIS] Stat Lab 02/14/19 03:35 Completed URINE CULTURE [RM] Routine Lab 02/14/19 04:[address] S[address]EN [address] Stat Lab 02/14/19 03:35 Completed 0.9% Sodium Chloride Inj [Ns] 1,000 ml Med 02/14/19 03:03 Discontinued IV 999 mls/hr Clonidine Patch [[id number]] Med 02/14/19 07:12 Discontinued 1 each TD NOW ONE Levetiracetam [Keppra] 1,500 mg Med 02/14/19 03:42 Discontinued 0.9% Sodium Chloride Inj [Ns] 100 ml IV NOW Lorazepam [Ativan] Med 02/14/19 07:11 Discontinued 0.5 mg IV NOW ONE Lorazepam [Ativan] Med 02/14/19 03:12 Discontinued 2 mg .ROUTE .STK-MED ONE Lorazepam [Ativan] Med 02/14/19 03:41 Discontinued 2 mg .ROUTE .STK-MED ONE Lorazepam [Ativan] Med 02/14/19 03:50 Discontinued 2 mg IV NOW ONE Mvi [M.v.i.-12] 10 ml Med 02/14/19 06:28 Discontinued Folic Acid 1 mg Magnesium Sulfate 1 gm Thiamine 100 mg 0.9% Sodium Chloride Inj [Ns] 1,000 ml IV NOW EKG [EKG] Stat Ther 02/14/19 01:21 Draft Result Diagrams: 02/14/19 00:55 02/14/19 02:06 - REASSESSMENT Reassessment #1 Time Reassessed: 07:34 Status: improving (Seen and examined by me. Case discussed with Dr. Ramirez at shift change. Patient is post-ictal but when roused is tremulous. He his hypertensive and tachycardic, even when asleep, so is in active DTs, with a 2 withdrawal seizures. Needs admission. Will give more ativan, and also apply clonidine TD patch.) - CT/MRI 1 CT Study: Head Impression: Normal - CONSULTS/PCP/HOSPITALIST Notification #1 *Consult/PCP/Hospitalist*: Carina (hospitalist) Time Discussed: 07:30 Consult Disposition: Admit (to ICU) <Max Oliver - Last Filed: 02/14/19 07:34> - PLAN OF CARE/RESULTS Progress/Plan/Lab Results: Vital Signs - 8 hr 02/14/19 00:32 Temperature 97.7 F Pulse Rate 108 H Respiratory Rate 16 Blood Pressure 121/76 O2 Sat by Pulse Oximetry 93 L Patient had another seizure while in the ED. Given 2mg of Ativan and keppra loaded. Slept after ativan and after seizure. No family at bedside. LA likely elevated due to seizure. Will need to try and touch base with patient's family in the AM. Patient signed out to Dr Oliver pending final dispo. Result Diagrams: 02/14/19 00:55 02/14/19 02:06 - CT/MRI 1 CT Study: Head Impression: Normal <Georgette Ramirez - Last Filed: 02/14/19 22:13> Departure - Departure Time of Disposition Decision: 07:37 Certified Medical Emergency: Emergent - Critical Care Note This patient required my direct & personal management of CC.: Yes Total Time (mins): 40 ([employer] and [employer] systems effected, required multiple doses of antiepileptics, antihypertensives, treatment for w/d) Critical Care Statement: This patient required my direct personal management to treat or rule out processes, the absence of which, could potentiallly result in sudden, clinically significant life or limb threatening deterioration. <Max Oliver - Last Filed: 02/14/19 07:34> - Departure Date of Disposition Decision: 02/14/19 Certified Medical Emergency: Emergent - Critical Care Note This patient required my direct & personal management of CC.: No <Georgette Ramirez - Last Filed: 02/14/19 22:13> - Departure DIAGNOSIS: Alcohol abuse, Lactic acidosis, Acute hyperactive alcohol withdrawal delirium, Generalized convulsive seizures Disposition: ADMITTED INPATIENT 09 Condition: Stable Attestation - Physician/ TRISTAN Attestation Patient care was provided by Advanced Practice Provider:: No The physician spent face to face time with patient:: Yes Advanced Practice Provider documentation review:: Supervising physician onsite and consulted in the evaluation and care of this patient. The physician did have a face to face encounter with the patient. <Max Oliver - Last Filed: 02/14/19 07:34> - Physician/ TRISTAN Attestation Patient care was provided by Advanced Practice Provider:: No The physician spent face to face time with patient:: Yes Advanced Practice Provider documentation review:: Supervising physician onsite and consulted in the evaluation and care of this patient. The physician did have a face to face encounter with the patient. <Georgette Ramirez - Last Filed: 02/14/19 22:13> This chart was documented by the indicated scribe, (Costa Lyons Scribe) and accurately reflects the services I performed and decisions made by me, Georgette Ramirez MD, as attested by the provider's signature.
[2019-02-14] MEDS ORDERED: ATIVAN ONE ×2 (03:12→03:41)
[2019-02-14] MEDS ORDERED: KEPPRA 1,500 MG in NS 100 ML IV ONE (03:42)
[2019-02-14] MEDS ORDERED: ATIVAN IV ONE ×2 (03:50→07:11)
[2019-02-14 04:08] LABS: UR AMPHETAMINES QUAL NONE DETECTED (NONE DETECT); UR BARBITUATES QUAL NONE DETECTED (NONE DETECT); UR BENZODIAZEPIN QUAL NONE DETECTED (NONE DETECT); UR CANNABINOIDS QUAL NONE DETECTED (NONE DETECT); UR COCAINE QUAL NONE DETECTED (NONE DETECT); UR METHADONE QUAL NONE DETECTED (NONE DETECT); UR METHAMPHETAMINE QUAL NONE DETECTED (NONE DETECT); UR OPIATES QUAL NONE DETECTED (NONE DETECT); UR OXYCODONE QUAL NONE DETECTED (NONE DETECT); UR PCP QUAL NONE DETECTED (NONE DETECT); UR PROPOXYPHENE QUAL NONE DETECTED (NONE DETECT); UR TCA QUAL NONE DETECTED (NONE DETECT)
[2019-02-14 04:09] LABS: BILIRUBIN URINE NEGATIVE (NEGATIVE); BLOOD URINE 1+ (NEGATIVE); GLUCOSE URINE NEGATIVE (NEGATIVE); KETONE URINE 1+(Small) mg/dL (NEGATIVE); LEUKOCYTES URINE NEGATIVE (NEGATIVE); NITRITE URINE NEGATIVE (NEGATIVE); PROTEIN URINE TRACE mg/dL (NEGATIVE); UROBILINOGEN URINE NORMAL
[2019-02-14 04:10] LABS: CLARITY CLEAR (CLEAR); COLOR YELLOW
[2019-02-14 04:13] LABS: URINE BACTERIA 2+ /HFP; URINE CAST NONE SEEN /LPF; URINE EPITHELIAL CELLS <10 /HPF (<10); URINE RBC <10 /HPF (<10); URINE WBC <10 /HPF (<10); URINE YEAST NONE SEEN /HPF
[2019-02-14 04:14] LABS: URINE CRYSTAL NONE SEEN /HPF; URINE SOURCE CATH
[2019-02-14] MEDS ORDERED: M.V.I.-12 10 ML, FOLIC ACID 1 MG, MAGNESIUM SULFATE 1 GM, THIAMINE 100 MG in NS 1,000 ML IV ONE ×2 (06:28→07:39)
--- NOTE | 2019-02-14 06:41 | EKG Report ---
Test Performed on : 02/14/2019 03:08:16 AM Test Reason : AMS "seizure Blood Pressure : / mmHG Vent. Rate : 094 BPM Atrial Rate : 094 BPM P-R Int : 156 ms QRS Dur : 088 ms QT Int : 342 ms P-R-T Axes : 065 033 054 degrees QTc Int : 427 ms Normal sinus rhythm. Voltage criteria for left ventricular hypertrophy Abnormal ECG No previous ECGs available Unconfirmed Result
[2019-02-14] MEDS ORDERED: CATAPRES-TTS-1 TD ONE (07:12)
[2019-02-14] MEDS ORDERED: ZYPREXA ZYDIS SL PRN (07:39)
[2019-02-14] MEDS ORDERED: ATIVAN IV PRN (07:39)
--- NOTE | 2019-02-14 08:31 | Diag Imaging Result Doc PS360 ---
EXAM: CHEST-PORTABLE INDICATION: w/d seizures TECHNIQUE: One view COMPARISON: None. FINDINGS: There are several old rib fractures bilaterally. There is vague groundglass opacity in the right midlung zone suggesting possible developing infiltrate. The left lung is clear. There is no discrete pleural fluid collection or pneumothorax. The cardiomediastinal silhouette and central vasculature are grossly unremarkable. IMPRESSION: Vague groundglass opacity in the right midlung zone suggesting possible developing mild infiltrate. Electronically signed by Binh Jackson 02/14/2019 8:28 AM
[2019-02-14 09:33] LABS: INR 1.02; PROTIME 13.9 Seconds (11.0-16.0)
[2019-02-14 09:34] LABS: PTT 27.5 Seconds (22.3-41.8)
--- NOTE | 2019-02-14 11:26 | Diag Imaging Result Doc PS360 ---
EXAM: CT HEAD W/O CONTRAST INDICATION: AMS, "seizure" TECHNIQUE: This exam was performed using automated exposure control, adjustment of mA or kV according to patient size, and/or use of iterative reconstruction technique. COMPARISON: None. FINDINGS: There is patchy low attenuation in the periventricular and subcortical white matter suggesting moderate to advanced microangiopathy. There is no definite acute infarct given the limited sensitivity of CT versus MRI. There is no discrete intracranial mass, mass effect, or intracranial hemorrhage. There is an edema/small hematoma involving the scalp anteriorly on the right. The calvaria is intact. IMPRESSION: Chronic appearing white matter changes as described. No definite acute intracranial pathology. Electronically signed by Binh Jackson 02/14/2019 11:24 AM
[2019-02-14] MEDS ORDERED: ATARAX PO PRN (12:21)
[2019-02-14] MEDS ORDERED: BENTYL PO PRN (12:21)
[2019-02-14] MEDS: THERA M PLUS PO SCH (13:53)
[2019-02-14] MEDS: LIBRIUM PO SCH (13:53)
--- NOTE | 2019-02-14 14:02 | HISTORY AND PHYSICAL ---
I saw the patient [id number] and fully agree with the assessment, plan of nurse practitioner Juhi Rojas. This is a 68-year-old gentleman who was admitted for alcohol withdrawal symptoms. We will treat him as per protocol and follow hospital course. cc: Yanci Lim MD
--- NOTE | 2019-02-14 14:23 | HISTORY AND PHYSICAL ---
PRIMARY CARE PROVIDER: No one. CHIEF COMPLAINT: He was brought in due to a seizure. HISTORY OF PRESENT ILLNESS: Mr. Compa Jimenez is a 68-year-old male, who currently admits to drinking 18 beers per day, smokes a pack per day and has so since the age of 18, who apparently has a history of alcoholic withdrawal seizures. Apparently he had a seizure at home. Family called the EMS, who then brought him to the emergency department. He also had another seizure while he was in the emergency department, got a Keppra load, along with Ativan, banana bag. We will transfer him to the ICU. He is easily aroused and able to talk, might be slightly confused or postictal for now. There is an elevation in lactic acid at 8.2. White blood cell count is 4000. Chest x-ray could possibly start developing right midlung aspiration pneumonia, so we will have to watch that closely. He is getting fluids. He got a liter of saline and he is getting a banana bag, so he should start having a decrease in his lactic acid. PAST MEDICAL HISTORY: Difficult to obtain, but it is noted in the chart that he has a history of alcoholic withdrawal seizures. SURGICAL HISTORY: None. SOCIAL HISTORY: Currently he admits to drinking 18 beers a day or he says three 6-packs per day. A one pack per day smoker since the age of 18. Marijuana about once a week. Disabled and draws a check. He lives with his niece. FAMILY HISTORY: He is unaware of any medical family history. ALLERGIES: No known drug allergies. HOME MEDICATIONS: None. REVIEW OF SYSTEMS: He denies pain, but essentially it is hard to get this information from him. He is drowsy. PHYSICAL EXAM: VITAL SIGNS: Temperature 98.0 degrees, heart rate 65, respiratory rate 18, blood pressure 144/70, O2 saturation 96% on room air. GENERAL: Mr. Compa Jimenez is a 68-year-old, male, who is in no acute distress. He is lethargic or somewhat postictal. He answers some questions; whether or not they are accurate is unclear. HEENT: Atraumatic, normocephalic. Pupils equal, round, reactive to light, but sluggish. Mucous membranes are dry. He has got poor dentition. NECK: Trachea midline. CARDIOVASCULAR: S1, S2. Regular rate and rhythm. No rubs, gallops, murmurs. No lower extremity edema. +2 dorsalis and radial pulses. Negative JVD or carotid bruits. PULMONARY: Clear to auscultation. Bilateral breath sounds. No accessory muscle use or work of breathing noted. GI: Soft, nontender, nondistended. Positive bowel sounds x4. EXTREMITIES: Moves all extremities equally. Full range of motion. NEUROLOGIC: Drowsy and oriented to name only, but follows commands. SKIN: Warm, dry, intact. LABORATORY DATA: White blood cells 4000, hemoglobin 13, hematocrit 39, platelet count 288. INR 1.02, PTT 27.5. Sodium 144, potassium 4.0, BUN 9, creatinine 0.7, glucose 114, calcium 9.0, magnesium 2.4, bilirubin 0.20. AST 18, ALT 8, ammonia 39. Troponin less than 0.01. Albumin 4.7. Serum lactate 8.2. Urinalysis: Trace protein, 1+ ketones, 1+ blood and 2+ bacteria. Urine drug screen negative. Positive 35 on his alcohol level, less than 3 on salicylates, and less than 1.2 on acetaminophen. IMAGING: Chest x-ray: Vague ground-glass opacity in the right midlung zone suggesting possible developing mild infiltrate. Head CT: Chronic-appearing white matter changes, but nothing acute. EKG: Normal sinus rhythm, rate 94, QTc 427. ASSESSMENT AND PLAN: 1. Alcohol withdrawal seizure. He got Ativan and Keppra in the ER. We will start him on withdrawal protocol with low-dose Librium taper, daily banana bag and watch him in intensive care unit. Currently, he appears postictal. Might continue with the Keppra. This is most likely a withdrawal symptom of alcohol. He still has a positive alcohol level. 2. Alcohol abuse with alcohol intoxication, along with withdrawal. Monitor in the intensive care unit. Once more alert, we will be able to discuss alcohol cessation. 3. Tobacco abuse cessation discussed, but we will have to re evaluate and discuss it prior to discharge. 4. Deep vein thrombosis prophylaxis with sequential compression devices. 5. Lactic acidosis. We will recheck another one, but this is more suspicious for seizure lactic acidosis. We will also have to monitor him for any signs or symptoms of the infiltrate worsening in the right midlung zone. Dictated by JUDITH Bonilla for Yanci Lim MD cc: JUDITH Bonilla MD
[2019-02-15] MEDS: LIBRIUM PO SCH ×4 (01:30→20:14)
[2019-02-15 06:53] LABS: BASO# 0.03 X1000 (0.0-0.2); BASO% 0.7 % (0.0-0.8); EOS# 0.12 X1000 (0.0-0.7); EOS% 2.7 % (0.0-10.0); HEMOGLOBIN 12.3 g/dL (14.0-18.0); LYMPH% 40.6 % (20.5-51.1); MCH 26.7 PG (27-31); MCHC 32.4 g/dL (33-37); MCV 82.4 FL (81-99); MONO# 0.69 X1000 (0.11-0.59); MONO% 15.6 % (1.7-9.3); MPV 10.7 FL (7.4-10.4); NEUT# 1.79 X1000 (1.4-6.5); NEUT% 40.4 % (42.2-75.2); PLT 264 X1000 (130-400); RBC 4.61 XMIL (4.7-6.1); WBC 4.43 X1000 (4.8-10.8)
[2019-02-15 07:20] LABS: AGAP 9; ALBUMIN 3.9 g/dL (3.5-5.0); ALKALINE PHOSPHATASE 63 U/L (32-122); BUN 3 mg/dL (8-22); CALCIUM 8.9 mg/dL (8.8-10.2); CHLORIDE 105 mmol/L (98-107); COSMO 277; CREATININE 0.5 mg/dL (0.7-1.2); ESTIMATED GFR > 60; GLUCOSE 88 mg/dL (70-104); GOT 16 U/L (10-34); GPT 7 U/L (10-44); MAGNESIUM 2.2 mg/dL (1.5-2.7); PHOSPHORUS 2.6 mg/dL (2.7-4.5); POTASSIUM 3.4 mmol/L (3.5-5.1); SODIUM 141 mmol/L (136-145); TCO2 28 mmol/L (25-35); TOTAL PROTEIN 6.9 g/dL (6.3-8.3)
[2019-02-15] MEDS: THERA M PLUS PO SCH (08:05)
[2019-02-15] MEDS: M.V.I.-12 10 ML, FOLIC ACID 1 MG, MAGNESIUM SULFATE 1 GM, THIAMINE 100 MG in NS 1,000 ML IV SCH (08:08)
[2019-02-15] MEDS ORDERED: TYLENOL PO PRN (08:39)
--- NOTE | 2019-02-15 10:19 | PROGRESS NOTE ---
DATE: 02/15/2019 SUBJECTIVE: The patient is calmed down, but still confused. He is oriented to person only. OBJECTIVE: Vital Signs: Temperature 98.6, heart rate 70, respiratory rate 21, blood pressure 114/67, O2 saturation 98% on room air. General: This is a 68-year-old male, lying in bed in no acute distress. Cardiovascular: S1, S2 heard. No murmurs, gallops, or rubs. Regular rate and rhythm. Respiratory: Clear bilaterally to auscultation. No work of breathing or using accessory muscles. Abdomen: Soft, nontender to palpation. Bowel sounds present. No organomegaly. Extremities: No clubbing, cyanosis, or edema. Peripheral pulses present in both. Neurological: The patient is awake, but confused. Moves all 4 extremities spontaneously. LABORATORY DATA: White cell count 4.43, hemoglobin 12.3, hematocrit 38.0, platelets 264,000. BMP remarkable for potassium 3.4, creatinine 0.5. ASSESSMENT AND PLAN: 1. Alcohol withdrawal. The patient received Ativan and Keppra in the emergency room, but we decided to continue with just Ativan as needed and also low-dose Librium taper for this patient, and banana bag intravenously as well. He reported that he had prior episode of seizure, but because he is confused, we are not able to differentiate that he truly has a seizure disorder or if it was related to alcohol withdrawal. In any case, what I am going to do is to order an electroencephalogram to see the electrical activity of brain, and will continue to monitor this patient closely here in the intensive care unit. 2. Alcohol abuse with alcohol intoxication. The patient is a little bit more awake, but because of this risk for withdrawal with one episode of seizure, will continue to monitor this patient in the intensive care unit. 3. Tobacco abuse. Cessation discussed. 4. Deep vein thrombosis prophylaxis with sequential compression devices. 5. Disposition. I think at this point, this patient is getting slowly better, but still needs to be in the intensive care unit to be monitored closely. cc: Hardeep Yañez MD
[2019-02-16] MEDS: LIBRIUM PO SCH ×3 (05:30→20:15)
[2019-02-16 06:26] LABS: BASO# 0.03 X1000 (0.0-0.2); BASO% 0.9 % (0.0-0.8); EOS# 0.18 X1000 (0.0-0.7); EOS% 5.2 % (0.0-10.0); HEMATOCRIT 36.3 % (42.0-52.0); HEMOGLOBIN 11.7 g/dL (14.0-18.0); IMM GRAN# 0.01 X1000 (0.0-0.04); IMM GRAN% 0.3 % (0.0-0.5); LYMPH# 1.32 X1000 (1.2-3.4); LYMPH% 37.9 % (20.5-51.1); MCH 26.9 PG (27-31); MCHC 32.2 g/dL (33-37); MCV 83.4 FL (81-99); MONO# 0.41 X1000 (0.11-0.59); MONO% 11.8 % (1.7-9.3); MPV 10.5 FL (7.4-10.4); NEUT# 1.53 X1000 (1.4-6.5); NEUT% 43.9 % (42.2-75.2); PLT 258 X1000 (130-400); RBC 4.35 XMIL (4.7-6.1); RDW 16.3 % (11.5-14.5); WBC 3.48 X1000 (4.8-10.8)
[2019-02-16 06:52] LABS: AGAP 9; ALBUMIN 3.7 g/dL (3.5-5.0); ALKALINE PHOSPHATASE 61 U/L (32-122); BUN 3 mg/dL (8-22); CALCIUM 8.3 mg/dL (8.8-10.2); CHLORIDE 108 mmol/L (98-107); COSMO 282; CREATININE 0.4 mg/dL (0.7-1.2); ESTIMATED GFR > 60; GLUCOSE 99 mg/dL (70-104); GOT 14 U/L (10-34); GPT 7 U/L (10-44); MAGNESIUM 1.9 mg/dL (1.5-2.7); PHOSPHORUS 2.4 mg/dL (2.7-4.5); POTASSIUM 3.6 mmol/L (3.5-5.1); SODIUM 143 mmol/L (136-145); TCO2 26 mmol/L (25-35); TOTAL PROTEIN 6.6 g/dL (6.3-8.3)
[2019-02-16] MEDS: THERA M PLUS PO SCH (10:59)
[2019-02-16] MEDS: M.V.I.-12 10 ML, FOLIC ACID 1 MG, MAGNESIUM SULFATE 1 GM, THIAMINE 100 MG in NS 1,000 ML IV SCH ×2 (10:59→15:45)
[2019-02-16] MEDS ORDERED: SODIUM PHOSPHATE 35 MMOL in NS 250 ML IV ONE (11:00)
--- NOTE | 2019-02-16 12:14 | PROGRESS NOTE ---
DATE: 02/16/2019 SUBJECTIVE: The patient is still confused. A little bit alert and a little bit more oriented to place. He is oriented to person as well. No acute issues noted. OBJECTIVE: Vital Signs: Temperature 97 degrees, heart rate 64, respiratory rate 20, blood pressure 124/75 and O2 saturation 100% on room air. General: This is a 68-year-old male lying in bed in no acute distress. Cardiovascular: S1, S2 heard. No murmurs, gallops, or rubs. Regular rate and rhythm. Respiratory: Clear bilaterally to auscultation. No work of breathing or using accessory muscles. Abdomen: Soft. Nontender to palpation. Bowel sounds present. No organomegaly. Extremities: No clubbing, cyanosis, or edema. Peripheral pulses present in both legs. Neurological: Patient is awake, but a little bit confused. Moves all 4 extremities spontaneously. LABORATORY DATA: Reviewed. ASSESSMENT AND PLAN: 1. Alcohol withdrawal. At presentation, patient had seizures and he received Ativan and Keppra in the ER. The patient is not able to tell me if he has history of seizures or not. Here in the hospital, he is receiving low dose of Librium taper for this condition. He is also receiving banana bag intravenously as well. At this point, because we do not know exactly if this is a new onset seizure or this is just seizure secondary to alcohol withdrawal, I prefer to do a workup that will include EEG and MRI of the brain. We will get Dr. Pierre from Neurology involved in this case. We will see what they have to say. In the meantime, we will continue to monitor this patient closely here in the hospital. So far, he has had a good night. 2. Alcohol abuse and alcohol intoxication. We will continue with low-dose Librium taper. 3. Tobacco abuse. Cessation has been discussed with the patient today and he acknowledged understanding. 4. Deep vein thrombosis prophylaxis with SCD's. 5. Disposition. At this point, we are planning to perform those procedures including MRI of the brain, EEG and Neurology Consult. Once those are done, we will come up with a plan for this patient. cc: Hardeep Yañez MD MTDD
[2019-02-17] MEDS: LIBRIUM PO SCH ×2 (05:59→20:18)
[2019-02-17 07:28] LABS: AGAP 11; ALBUMIN 3.6 g/dL (3.5-5.0); ALKALINE PHOSPHATASE 61 U/L (32-122); BUN 2 mg/dL (8-22); CALCIUM 8.3 mg/dL (8.8-10.2); CHLORIDE 105 mmol/L (98-107); COSMO 273; CREATININE 0.5 mg/dL (0.7-1.2); ESTIMATED GFR > 60; GLUCOSE 87 mg/dL (70-104); GOT 16 U/L (10-34); GPT 8 U/L (10-44); MAGNESIUM 1.9 mg/dL (1.5-2.7); PHOSPHORUS 2.8 mg/dL (2.7-4.5); POTASSIUM 3.9 mmol/L (3.5-5.1); SODIUM 139 mmol/L (136-145); TCO2 24 mmol/L (25-35); TOTAL PROTEIN 6.5 g/dL (6.3-8.3)
[2019-02-17 08:28] LABS: BASO# 0.02 X1000 (0.0-0.2); BASO% 0.6 % (0.0-0.8); EOS# 0.19 X1000 (0.0-0.7); EOS% 5.5 % (0.0-10.0); HEMATOCRIT 37.9 % (42.0-52.0); HEMOGLOBIN 12.3 g/dL (14.0-18.0); IMM GRAN# 0.01 X1000 (0.0-0.04); IMM GRAN% 0.3 % (0.0-0.5); LYMPH# 1.15 X1000 (1.2-3.4); LYMPH% 33.3 % (20.5-51.1); MCH 27.3 PG (27-31); MCHC 32.5 g/dL (33-37); MONO# 0.45 X1000 (0.11-0.59); MPV 9.8 FL (7.4-10.4); NEUT# 1.63 X1000 (1.4-6.5); NEUT% 47.3 % (42.2-75.2); PLT 266 X1000 (130-400); RBC 4.51 XMIL (4.7-6.1); RDW 16.4 % (11.5-14.5); WBC 3.45 X1000 (4.8-10.8)
[2019-02-17] MEDS: M.V.I.-12 10 ML, FOLIC ACID 1 MG, MAGNESIUM SULFATE 1 GM, THIAMINE 100 MG in NS 1,000 ML IV SCH (08:33)
[2019-02-17] MEDS: THERA M PLUS PO SCH (08:33)
--- NOTE | 2019-02-17 15:33 | Diag Imaging Result Doc PS360 ---
EXAM: MRI BRAIN W/WO CONTRAST - 02/17/2019 HISTORY: ams, seizures TECHNIQUE: MRI brain without and with contrast. Images are obtained prior to and following gadolinium administration. COMPARISON: 03/26/2017 FINDINGS: There is artifact from small metallic shrapnel at the left posterior skull similar to the prior exam. This limits detail, most prominently at the left posterior parietal occipital region. There are some chronic microvascular ischemic changes similar to the prior exam. The diffusion weighted images show no areas of restricted diffusion (no evidence of acute infarct). The left posterior parietal occipital region is obscured by artifacts on the diffusion-weighted images. There is no evidence of intracranial hemorrhage, mass effect, or midline shift. There is no abnormal enhancement identified. IMPRESSION: Chronic microvascular ischemic changes. No visible acute intracranial abnormality. There are artifacts from shrapnel which limit detail, primarily at the left posterior parietal-occipital region. Electronically signed by Jeancarlos Heard 02/17/2019 3:31 PM
--- NOTE | 2019-02-17 17:44 | CONSULTATION ---
DATE OF CONSULTATION: 02/17/2019 NEUROLOGY CONSULTATION NOTE: LOCATION: [address] HISTORY OF PRESENT ILLNESS: Mr. Jimenez is 68 years old and it sounds like he had some more alcohol withdrawal seizures. I saw him in 2016 and in 2017 in the hospital with similar history. He was admitted this time on 02/14/2019 with history of likely seizure at home. He was managed with levetiracetam and lorazepam. His admission ethanol level was 35 mg/dL. Urine drug screen was otherwise negative. Lab showed WBC 7415-2352 range. He has some minor findings on chemistry profile, but nothing remarkable and nothing that generally would be associated with seizure or encephalopathy. There has been concern for dementia. When I saw him before, there appeared to be cognitive impairment at baseline and there was suggestion to consider cholinesterase inhibitor when stable as an outpatient. Imaging includes initial noncontrast CT of the head showing old changes, but nothing focal or acute. Brain MRI with and without contrast today shows usual changes and nothing significantly changed compared to brain MRI done March 2017. He has been afebrile here. PHYSICAL EXAMINATION: On exam, Mr. Jimenez is awake, alert, attentive, cheerful, appropriate in conversation. Speech is a little bit dysarthric, but easily understood. Language function is intact on brief bedside testing. Remote memory is fair. Recent memory is poor. He was not able to answer correctly regarding the name of the month, day of the week, the year, or the name of the President. He did report he is in [place] and eventually was able to report this is a hospital in [place]. He did not name the hospital. He did not discuss recent news when asked to do so. Head and neck are unremarkable. There is no meningismus. Visual louis are full tested grossly by confrontational finger counting. Visual acuity seems poor, but was not tested thoroughly. Facial motility is symmetric. Tongue is midline. Palate is midline. He can hear. Shoulder shrug is equal. Strength is normal in the arms and legs. He has a little bit of difficulty with [id number] and a little bit greater difficulty with [id number] bilaterally and symmetrically. He reports diminished light touch appreciation in a stocking pattern bilaterally. I did not test his gait. Reflexes are 1+ symmetrically at the wrists and 2+ symmetrically at the biceps. IMPRESSION: Global encephalopathy, likely multifactorial with contributions from baseline cognitive impairment attributed to chronic ethanol use disorder, recent sedatives, concern for dementia. I do not have any urgent suggestion. 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 I suspect he would not be compliant with the recommended dosing, and I suspect he would return with alcohol withdrawal seizures. I strongly encouraged him to consider ethanol abstinence. Again, when he is clinically stable, I think it would be reasonable to consider further cognitive evaluation and possible cholinesterase inhibitor trial. I will be glad to see him as an outpatient for that management, if asked. Thanks for asking Neurology to see Mr. Jimenez again. cc: MD CHASITY Ayala III
--- NOTE | 2019-02-17 23:24 | PROGRESS NOTE ---
DATE: 02/17/2019 SUBJECTIVE: The patient currently has no new complaints. He does not follow commands currently, although the staff does note that yesterday afternoon he was much more awake and alert than he is right now. PHYSICAL EXAMINATION: Vital Signs: Temperature 97.3, pulse 58, respiratory rate 18, BP 126/99. General: The patient is in no current respiratory distress. An EEG and MRI has been ordered and are apparently pending. ASSESSMENT: 1. Chronic alcohol abuse. We will continue to wean Librium. 2. Chronic tobacco abuse. PLAN: We will wean Librium. Check MRI. We will follow. We expect that it may take several days for his mentation to return back to normal due to his alcohol intake and his current alcohol withdrawal. cc: Krishna Betts MD
[2019-02-18 07:10] LABS: AGAP 9; ALBUMIN 3.7 g/dL (3.5-5.0); ALKALINE PHOSPHATASE 62 U/L (32-122); BUN 4 mg/dL (8-22); CALCIUM 8.5 mg/dL (8.8-10.2); CHLORIDE 106 mmol/L (98-107); COSMO 278; CREATININE 0.5 mg/dL (0.7-1.2); ESTIMATED GFR > 60; GLUCOSE 96 mg/dL (70-104); GOT 18 U/L (10-34); GPT 11 U/L (10-44); MAGNESIUM 1.7 mg/dL (1.5-2.7); PHOSPHORUS 2.8 mg/dL (2.7-4.5); SODIUM 141 mmol/L (136-145); TCO2 26 mmol/L (25-35); TOTAL PROTEIN 6.5 g/dL (6.3-8.3)
[2019-02-18] MEDS: LIBRIUM PO SCH ×2 (08:11→20:14)
[2019-02-18] MEDS: THERA M PLUS PO SCH (08:12)
--- NOTE | 2019-02-18 14:29 | PROGRESS NOTE ---
DATE: 02/18/2019 ROOM NUMBER: [id number]. Mr. Jimenez continues awake, alert, attentive. He had some appropriate conversation with me. He asked about going home. He does not have any complaints. I encouraged him to consider complete ethanol abstinence. Initially, he said that he only drinks beer and I encouraged him to stop drinking beer. Again, I do not think we need to recommend long- term treatment with medicine for seizure control at this point. If he has seizures that are more clearly not associated with ethanol, we can reconsider. Thanks for asking Neurology to see Mr. Jmienez. cc: MD CHASITY Ayala III
--- NOTE | 2019-02-18 19:15 | EEG REPORT ---
DATE: 02/15/2019 EEG NUMBER: [id number]. COMMENT: This is a digitally recorded EEG on a 68-year-old patient with chronic alcohol use, possible baseline cognitive impairment, many episodes of seizure related to alcohol withdrawal, not clear that a definite seizure unrelated to ethanol has ever recurred. FINDINGS: During waking, medium and higher amplitude 8.5 to 9 Hz posterior rhythm is present bilaterally and reacts at times to eye opening. Background contains polymorphic and rhythmic theta frequencies over the frontal and central regions symmetrically. There is occasional high amplitude slowing in the delta range present frontally bilaterally while awake. Drowsing occurred with appearance of more generalized slowing and attenuation of the posterior rhythm. Stage 2 sleep was not recorded. Photic stimulation did not significantly alter the record. No definite epileptiform discharge was identified. INTERPRETATION: Abnormal EEG because of generalized slowing. CORRELATION: This is indicative of a diffuse encephalopathy and is nonspecific. The absence of epileptiform discharges on a single EEG does not exclude a clinical diagnosis of seizures. cc: MD Hardeep Ayala III, [facility]
--- NOTE | 2019-02-18 22:27 | PROGRESS NOTE ---
DATE: 02/18/2019 SUBJECTIVE: The patient is still confused but he seems to be a little more oriented today. He actually does answer questions, although not always correctly, but this is still an improvement from previous. OBJECTIVE: Temperature 97.4 degrees, pulse 63, respiratory rate 18, BP 113/68.General: The patient is awake, alert. He is in no current respiratory distress. HEENT: Normocephalic. Neck supple. Cardiovascular: Regular rate. Chest clear. Abdomen soft. Extremities: He is noted to move all 4 extremities, although he does not follow any type of commands. ASSESSMENT: 1. Acute global encephalopathy with altered mental status. He seems to be improving. 2. Chronic alcohol abuse with alcohol withdrawal. He is currently out of withdrawal. 3. Chronic tobacco abuse. PLAN: We will continue the patient in the hospital. Continue physical therapy. I would expect that this is from alcohol alone. This is going to take another several weeks for him to clear up. He certainly will need to be considered for rehab. cc: Krishna Betts MD
[2019-02-19] MEDS: THERA M PLUS PO SCH (08:39)
[2019-02-19] MEDS ORDERED: LIBRIUM PO SCH (09:00)
--- NOTE | 2019-02-20 01:15 | PROGRESS NOTE ---
DATE: 02/19/2019 SUBJECTIVE: Patient notes he is feeling a lot better today. He actually denies any complaints. OBJECTIVE: Vital signs: Temperature 97.6 degrees, pulse 68, respiratory 18, BP 108/59. General: The patient is much more awake, alert. He is able to answer questions appropriately. Currently, he is much more oriented than he had been in the past. HEENT: Normocephalic. Neck: Supple. Cardiovascular: Regular rate. No murmurs. Chest: Clear, nonlabored. Extremities: Moves all extremities. Neurologic: No focal neurological changes. Skin: Warm, dry. No rashes. ASSESSMENT: 1. Alcohol withdrawal, stabilized. He is no longer in alcohol withdrawal. 2. Acute metabolic encephalopathy secondary to his alcohol withdrawal, improving. 3. Chronic tobacco abuse. PLAN: We will continue patient in the hospital. Continue physical therapy. Expect that he will need rehab on discharge. cc: Krishna Betts MD
[2019-02-20] MEDS: THERA M PLUS PO SCH (09:55)
--- NOTE | 2019-02-20 19:33 | PROGRESS NOTE ---
DATE: 02/20/2019 SUBJECTIVE: The patient notes that he is feeling okay. OBJECTIVE: Vital signs reviewed. Temperature 98.4 degrees, pulse 89, respiratory rate 18, BP 96/65.General: The patient is awake, alert. He is much more alert and oriented than he has been in the past. Each day he continues to improve, although slowly. HEENT: Normocephalic. Neck supple. Cardiovascular: Regular rate. Chest clear. Abdomen soft. Extremities: Moves all extremities. ASSESSMENT: 1. Chronic alcoholism, stable. 2. Chronic tobacco abuse. 3. Global encephalopathy, improved. 4. Hypotension. 5. Adult failure to thrive with generalized weakness. PLAN: We will continue the patient in the hospital. Continue physical therapy. He currently is no longer in alcohol withdrawal. cc: Krishna Betts MD
[2019-02-21] MEDS: THERA M PLUS PO SCH (10:18)
[2019-02-21] MEDS: VITAMIN B-1 PO SCH (10:18)
--- NOTE | 2019-02-21 14:01 | PROGRESS NOTE ---
DATE: 02/21/2019 SUBJECTIVE: The patient denies having any acute complaints and is in a good mood today. OBJECTIVE: Vital Signs: Temperature 97.4 degrees, pulse 66 per minute, respiratory rate 18 per minute, blood pressure 115/71, pulse oximetry 99% on room air. General: Patient is alert and oriented x3. Does not appear to be in any acute distress. Cardiovascular System: First and second heart sounds are audible without any murmurs or gallops. Respiratory System: No respiratory distress noted. Bilateral lung air entry is good without any rales or rhonchi. Gastrointestinal System: Abdomen is nontender. Normal bowel sounds are present. DIAGNOSTIC DATA: No new labs have been done recently for the past 2 days. IMPRESSION: 1. Metabolic encephalopathy that has now improved. 2. Alcohol abuse. 3. Malnutrition. 4. Generalized deconditioning. PLAN: The patient will be continued to get supportive care, and we are going to transfer him to rehab probably on Saturday next week. cc: Yanci Lim MD
[2019-02-21] MEDS: NICODERM PATCH TD SCH (14:29)
--- NOTE | 2019-02-22 10:33 | PROGRESS NOTE ---
DATE: 02/22/2019 SUBJECTIVE: The patient is in a good mood today and denies having any acute problems. OBJECTIVE: Vital signs: Temperature is 97.8 degrees, pulse 88 per minute, respiratory rate 16 per minute, blood pressure 140/79, pulse oximetry 100% on room air. General: The patient is alert and oriented x3. He does not appear to be in any acute distress. Cardiovascular: First and second heart sound are audible without any murmurs or gallops. Respiratory: No respiratory distress noted. Bilateral lung air entry is good without any rales or rhonchi. Gastrointestinal: Abdomen is soft and nondistended. Normal bowel sounds are present. IMPRESSION: 1. Metabolic encephalopathy secondary to alcohol abuse that has now improved. 2. Moderate protein calorie malnutrition. 3. Generalized deconditioning. PLAN: We will continue with supportive care and plan to transfer him to rehab tomorrow morning. cc: Yanci Lim MD
[2019-02-22] MEDS: NICODERM PATCH TD SCH (11:08)
[2019-02-22] MEDS: VITAMIN B-1 PO SCH (11:08)
[2019-02-22] MEDS: THERA M PLUS PO SCH (11:08)
[2019-02-23] MEDS: VITAMIN B-1 PO SCH (09:00)
[2019-02-23] MEDS: THERA M PLUS PO SCH (09:00)
[2019-02-23] MEDS: NICODERM PATCH TD SCH (09:00)
--- NOTE | 2019-02-23 14:36 | DISCHARGE SUMMARY ---
ADMISSION DATE: 02/14/2019 DISCHARGE DATE: 02/23/2019 ADMISSION DIAGNOSES: 1. Alcohol withdrawal seizure. 2. Alcohol abuse with alcohol intoxication along with withdrawal. 3. Tobacco abuse cessation discussed. DISCHARGE DIAGNOSES: 1. Metabolic encephalopathy secondary to alcohol abuse, improved. 2. Moderate protein calorie malnutrition. 3. Generalized deconditioning. 4. Alcohol withdrawal seizure, resolved. 5. Alcohol abuse with alcohol intoxication along with withdrawal resolved. SUMMARY OF FINDINGS: This is a 68-year-old male who presented to the ER after family called EMS after he had a seizure at home and had a seizure in the emergency room. He got a Keppra load along with some Ativan and a banana bag and was admitted initially to the intensive care unit. He has done well and is no longer in any withdrawal from alcohol at this time. His metabolic encephalopathy has improved. He was transferred out of the intensive care unit to the medical floor and it is now felt that he can safely be discharged to rehab. DISCHARGE MEDICATIONS: 1. Tylenol 650 mg p.o. q.4 hours p.r.n. 2. Hydroxyzine 25 mg p.o. q.6 hours p.r.n. 3. Multivitamin p.o. daily. 4. NicoDerm patch 21 mg transdermally daily. 5. Thiamine 100 mg p.o. daily. FOLLOWUP: He will need to follow up with the primary care physician and with neurology once he completes his rehab stay. All discharge instructions have been reviewed and he verbalizes understanding. TIME SPENT: This is a 35 minute discharge. Dictated by JUDITH Dickey for Krishna Betts MD cc: JUDITH Dickey MD
[2019-02-23 16:38] VITALS: BP 112/64
--- NOTE | 2019-02-24 13:35 | DISCHARGE SUMMARY ---
ADMISSION DATE: 02/14/2019 DISCHARGE DATE: 02/23/2019 ADDENDUM: Patient seen and examined by myself. Full note dictated and discussed with nurse practitioner. Patient initially presented to the hospital with acute metabolic encephalopathy secondary to alcohol withdrawal. Thankfully he has completely stabilized, and is no longer withdrawal and in fact his metabolic encephalopathy has continued to improve. He does follow commands. He is awake, alert. However, he still generally weak and unable to care for himself. Therefore, we will transfer him to rehab. cc: Krishna Betts MD
== END 2019-02-23 16:57 | DRG 896 ==
LOC: P.ED 00:30 → MERGE 09:32 → SUATTDRO 09:32 → P.EDIPHOLD 09:32 → P.ICU 12:44 → P.MEDSURG 02-15 17:40
PROVIDERS: ATTEND Family Medicine